=== PATIENT | male | born 1990 | race Caucasian/White ===

== ENCOUNTER 2020-02-29 20:25 | Emergency (ER) | payer BC ==
[2020-02-29 20:41] VITALS: RESP 20; TEMP 98
[2020-02-29] MEDS ORDERED: ACET/COD 300 MG/30 MG STARTER PACK 6 TAB BTL PO STA (21:11)
[2020-02-29] MEDS ORDERED: KETOROLAC 15 MG/ML 1 ML VIAL IM STA (21:11)
[2020-02-29] MEDS ORDERED: hydrALAZINE HCL 20 MG/ML 1 ML VIAL IVP STA (21:47)
[2020-02-29 22:14] LABS: Basophils # (A) 0.2 k/uL (0-0.2); Basophils % (A) 1 %; Eosinophils # (A) 0.3 k/uL (0-0.7); Eosinophils % (A) 3 %; HCT 52.4 % (39.0-53.0); HGB 17.3 gm/dL (13.0-17.5); Lymphocytes % (A) 33 %; MCH 33.7 pg (25.0-35.0); MCV 101.9 fL (80.0-100.0); Mean Platelet Volume 7.7; Monocytes # (A) 0.7 k/uL (0-1.0); Monocytes % (A) 5 %; Neutrophils # (A) 6.8 k/uL (1.3-7.7); Neutrophils % (A) 56 %; Platelet Count 267 k/uL (150-450); RBC 5.15 m/uL (4.30-5.90); RDW 12.4 % (11.5-15.5); WBC 12.1 k/uL (3.8-10.6)
[2020-02-29 22:23] LABS: INR 0.9 (<1.2); Partial Thromboplastin Time 23.5 sec (22.0-30.0); Prothrombin Time 9.6 sec (9.0-12.0)
[2020-02-29 22:24] LABS: ALT 73 U/L (4-49); AST 44 U/L (17-59); African American GFR (CKD) >90 (>60 ml/min/1.73 sqM); Alkaline Phosphatase 85 U/L (38-126); Anion Gap 7 mmol/L; Blood Urea Nitrogen 8 mg/dL (9-20); Calcium 9.3 mg/dL (8.4-10.2); Carbon Dioxide 27 mmol/L (22-30); Chloride 106 mmol/L (98-107); Glucose 94 mg/dL (74-99); Non-African American GFR(CKD) >90 (>60 ml/min/1.73 sqM); Potassium 4.1 mmol/L (3.5-5.1); Sodium 140 mmol/L (137-145); Total Bilirubin 0.5 mg/dL (0.2-1.3); Total Protein 7.3 g/dL (6.3-8.2)
[2020-02-29 22:53] VITALS: PULSE 93
--- NOTE | 2020-02-29 22:59 | ED ---
Back Pain HPI - General Chief Complaint: Back Pain/Injury Stated Complaint: back & leg pain Time Seen by Provider: 02/29/20 20:56 Source: patient Limitations: no limitations - History of Present Illness Initial Comments: 30-year-old male patient presents to the emergency department today for evaluation of low back pain. Patient states he has been having increased low back pain over the last week. States that the pain has been progressively worsening. States he is not having pain down the front of his legs to about the knee level. He is reporting numbness to the third toe on the left foot but denies any other numbness or tingling. Denies saddle anesthesia or loss of magdalena wel or bladder control. Denies fever or chills. Denies history of IV drug use. Denies any injury to the back. States he has history of herniated disc and has had back pain on and off but this is the worst its ever been. Patient states pain worsens with standing and ambulation. Was seen at urgent care this morning and given antiinflammatories, steroids, and muscle relaxers. States he did take the muscle relaxer and antiinflammatory, but it did not seem to help. Patient denies any recent rash, cough, shortness of breath, chest pain, abdominal pain, nausea, vomiting, diarrhea, constipation, dizziness, weakness, hematuria, dysuria, urinary urgency, urinary frequency, headache, visual changes, or any other complaints. - Related Data Home Medications Medication Instructions Recorded Confirmed Cyclobenzaprine [Flexeril] 10 mg PO HS PRN 02/29/20 02/29/20 Diclofenac Sodium [Voltaren] 50 mg PO BID PRN 02/29/20 02/29/20 dexAMETHasone [Dexamethasone] 2 mg PO DAILY 02/29/20 02/29/20 Previous Rx's Medication Instructions Recorded hydroCHLOROthiazide 25 mg PO DAILY #30 tablet 02/29/20 metroNIDAZOLE [Flagyl] 500 mg PO BID #14 tab 02/29/20 Allergies Allergy/AdvReac Type Severity Reaction Status Date / Time No Known Allergies Allergy Verified 02/29/20 22:22 Review of Systems ROS Statement: Those systems with pertinent positive or pertinent negative responses have been documented in the HPI. ROS Other: All systems not noted in ROS Statement are negative. Past Medical History Past Medical History: Hypertension History of Any Multi-Drug Resistant Organisms: None Reported Past Surgical History: No Surgical Hx Reported Past Psychological History: ADD/ADHD Smoking Status: Current every day smoker Past Alcohol Use History: Daily Past Drug Use History: Marijuana General Exam Limitations: no limitations General appearance: alert, in no apparent distress, other (This is a well- developed, well-nourished adult male patient in no acute distress. Vital signs upon presentation are temperature 98.0F, pulse 86, respirations 20, blood pressure 183/125, pulse ox 99% on room air.) Eye exam: Present: normal appearance, PERRL, EOMI. Absent: scleral icterus, conjunctival injection, periorbital swelling ENT exam: Present: normal exam, normal oropharynx, mucous membranes moist Respiratory exam: Present: normal lung sounds bilaterally. Absent: respiratory distress, wheezes, rales, rhonchi, stridor Cardiovascular Exam: Present: regular rate, normal rhythm, normal heart sounds. Absent: systolic murmur, diastolic murmur, rubs, gallop, clicks GI/Abdominal exam: Present: soft, normal bowel sounds. Absent: distended, tenderness, guarding, rebound, rigid Neurological exam: Present: alert, oriented X3, CN II-XII intact Psychiatric exam: Present: normal affect, normal mood Skin exam: Present: warm, dry, intact, normal color. Absent: rash Course Vital Signs 02/29/20 02/29/20 02/29/20 20:35 21:27 22:52 Temperature 98.0 F Pulse Rate 86 93 Respiratory 20 20 Rate Blood Pressure 183/125 180/139 171/111 O2 Sat by Pulse 99 99 Oximetry 02/29/20 23:42 Temperature Pulse Rate Respiratory Rate Blood Pressure 158/113 O2 Sat by Pulse Oximetry Medical Decision Making - Medical Decision Making 30-year-old male patient presents to the emergency department today for evaluation of increased low back pain. He did have some right thoracic paraspinal tenderness consistent with spasm. He is neurovascularly intact. He has no concerning symptoms for cauda equina. Upon arrival blood pressure was quite elevated. He does report a history of hypertension but has not take medications for 2 years. Labs were obtained and were unremarkable. EKG was normal sinus. Urinalysis did show 28 white blood cells. We did discuss infection versus sexually transmitted disease, he does admit that his was recently diagnosed with Trichomonas and he has not been treated. We will treat with Flagyl. We did start hydrochlorothiazide for blood pressure management. He does not currently have a primary care physician one was recommended to him is instructed to follow-up as soon as possible. He is instructed to monitor blood pressures at home. He was given steroids, anti-inflammatory, and muscle relaxer at urgent care this morning, he is urged to continue these medications for management of his back pain. He was recommended orthopedics if his symptoms do not improve. Return parameters discussed in detail. He verbalizes understanding and agrees with this plan. - Lab Data Result diagrams: 02/29/20 22:00 02/29/20 22:00 Lab Results 02/29/20 02/29/20 02/29/20 Range/Units 22:00 22:00 22:00 WBC 12.1 H (3.8-10.6) k/uL RBC 5.15 (4.30-5.90) m/uL Hgb 17.3 (13.0-17.5) gm/dL Hct 52.4 (39.0-53.0) % MCV 101.9 H (80.0-100.0) fL MCH 33.7 (25.0-35.0) pg MCHC 33.0 (31.0-37.0) g/dL RDW 12.4 (11.5-15.5) % Plt Count 267 (150-450) k/uL Neutrophils % 56 % Lymphocytes % 33 % Monocytes % 5 % Eosinophils % 3 % Basophils % 1 % Neutrophils # 6.8 (1.3-7.7) k/uL Lymphocytes # 4.0 (1.0-4.8) k/uL Monocytes # 0.7 (0-1.0) k/uL Eosinophils # 0.3 (0-0.7) k/uL Basophils # 0.2 (0-0.2) k/uL PT 9.6 (9.0-12.0) sec INR 0.9 (<1.2) APTT 23.5 (22.0-30.0) sec Sodium (137-145) mmol/L Potassium (3.5-5.1) mmol/L Chloride (98-107) mmol/L Carbon Dioxide (22-30) mmol/L Anion Gap mmol/L BUN (9-20) mg/dL Creatinine (0.66-1.25) mg/dL Est GFR (CKD-EPI)AfAm (>60 ml/min/1.73 sqM) Est GFR (CKD-EPI)NonAf (>60 ml/min/1.73 sqM) Glucose (74-99) mg/dL Calcium (8.4-10.2) mg/dL Total Bilirubin (0.2-1.3) mg/dL AST (17-59) U/L ALT (4-49) U/L Alkaline Phosphatase (38-126) U/L Troponin I (0.000-0.034) ng/mL Total Protein (6.3-8.2) g/dL Albumin (3.5-5.0) g/dL Urine Color Yellow Urine Appearance Clear (Clear) Urine pH 6.5 (5.0-8.0) Ur Specific [place] 1.025 (1.001-1.035) Urine Protein Trace H (Negative) Urine Glucose (UA) Negative (Negative) Urine Ketones Negative (Negative) Urine Blood Negative (Negative) Urine Nitrite Negative (Negative) Urine Bilirubin Negative (Negative) Urine Urobilinogen 3.0 (<2.0) mg/dL Ur Leukocyte Esterase Moderate H (Negative) Urine RBC 8 H (0-5) /hpf Urine WBC 28 H (0-5) /hpf Ur Squamous Epith Cells 1 (0-4) /hpf Hyaline Casts 4 H (0-2) /lpf Urine Mucus Many H (None) /hpf 02/29/20 02/29/20 Range/Units 22:00 22:00 WBC (3.8-10.6) k/uL RBC (4.30-5.90) m/uL Hgb (13.0-17.5) gm/dL Hct (39.0-53.0) % MCV (80.0-100.0) fL MCH (25.0-35.0) pg MCHC (31.0-37.0) g/dL RDW (11.5-15.5) % Plt Count (150-450) k/uL Neutrophils % % Lymphocytes % % Monocytes % % Eosinophils % % Basophils % % Neutrophils # (1.3-7.7) k/uL Lymphocytes # (1.0-4.8) k/uL Monocytes # (0-1.0) k/uL Eosinophils # (0-0.7) k/uL Basophils # (0-0.2) k/uL PT (9.0-12.0) sec INR (<1.2) APTT (22.0-30.0) sec Sodium 140 (137-145) mmol/L Potassium 4.1 (3.5-5.1) mmol/L Chloride 106 (98-107) mmol/L Carbon Dioxide 27 (22-30) mmol/L Anion Gap 7 mmol/L BUN 8 L (9-20) mg/dL Creatinine 0.95 (0.66-1.25) mg/dL Est GFR (CKD-EPI)AfAm >90 (>60 ml/min/1.73 sqM) Est GFR (CKD-EPI)NonAf >90 (>60 ml/min/1.73 sqM) Glucose 94 (74-99) mg/dL Calcium 9.3 (8.4-10.2) mg/dL Total Bilirubin 0.5 (0.2-1.3) mg/dL AST 44 (17-59) U/L ALT 73 H (4-49) U/L Alkaline Phosphatase 85 (38-126) U/L Troponin I <0.012 (0.000-0.034) ng/mL Total Protein 7.3 (6.3-8.2) g/dL Albumin 4.0 (3.5-5.0) g/dL Urine Color Urine Appearance (Clear) Urine pH (5.0-8.0) Ur Specific [place] (1.001-1.035) Urine Protein (Negative) Urine Glucose (UA) (Negative) Urine Ketones (Negative) Urine Blood (Negative) Urine Nitrite (Negative) Urine Bilirubin (Negative) Urine Urobilinogen (<2.0) mg/dL Ur Leukocyte Esterase (Negative) Urine RBC (0-5) /hpf Urine WBC (0-5) /hpf Ur Squamous Epith Cells (0-4) /hpf Hyaline Casts (0-2) /lpf Urine Mucus (None) /hpf - EKG Data -: EKG Interpreted by Me EKG Comments: EKG obtained at 2205 shows normal sinus rhythm with a ventricular 77, RI interval 178, QRS duration 86, QT 386, QTc 436. No evidence of ST elevation or depression. Disposition Clinical Impression: Hypertension, Acute low back pain Disposition: HOME SELF-CARE Condition: Good Instructions (If sedation given, give patient instructions): Acute Low Back Pain (ED), Hypertension (ED) Additional Instructions: Take medications as directed. Establish and follow up with primary care physician for recheck as soon as possible. Follow-up with aircraft engine specialist if her back pain does not improve with instructions and medication. Return to the emergency department immediately for any new, worsening, or concerning symptoms. Prescriptions: metroNIDAZOLE [Flagyl] 500 mg PO BID #14 tab hydroCHLOROthiazide 25 mg PO DAILY #30 tablet Is patient prescribed a controlled substance at d/c from ED?: No Referrals: Edouard Dobson DO [STAFF PHYSICIAN] - 1-2 days Kia Lockett DO [Doctor of Osteopathic Medicine] - 1-2 days Time of Disposition: 23:16
[2020-02-29 23:12] LABS: Appearance,Urine Clear (Clear); Bilirubin,Urine Negative (Negative); Blood,Urine Negative (Negative); Color,Urine Yellow; Glucose,Urine (UA) Negative (Negative); Hyaline Casts,Urine 4 /lpf (0-2); Ketones,Urine Negative (Negative); Leukocyte Esterase,Urine Moderate (Negative); Mucus,Urine Many /hpf; Nitrite,Urine Negative (Negative); PH, Urine 6.5 (5.0-8.0); Protein,Urine Trace (Negative); RBC,Urine 8 /hpf (0-5); Specific Gravity,Urine 1.025 (1.001-1.035); Squamous Epithelial Cell,Urine 1 /hpf (0-4); WBC,Urine 28 /hpf (0-5)
[2020-02-29] MEDS ORDERED: hydroCHLOROthiazide 25 MG TAB PO STA (23:14)
[2020-02-29] MEDS ORDERED: ONDANSETRON 4 MG/2 ML VIAL IVP STA (23:15)
[2020-02-29] MEDS ORDERED: HYDROmorphone 1 MG/ML 1 ML SYRINGE IVP STA (23:15)
[2020-02-29] MEDS ORDERED: metroNIDAZOLE 500 MG TAB PO STA (23:34)
[2020-02-29 23:48] VITALS: BP 158/113
== END 2020-02-29 23:50 | disposition home or self-care (01) ==
LOC: EC 20:25
DX: M54.5 Low back pain (principal); I10 Essential (primary) hypertension; F17.200 Nicotine dependence, unspecified, uncomplicated; Z79.899 Other long term (current) drug therapy
CPT/HCPCS: 36415; 93005; 80053; 84484; 85025; 85610; 85730; 81001; 87491; 87591; 87086; 99284; 96374; 96375 ×2; 96372; J0360; J2405; J1170; J1885

== ENCOUNTER 2021-09-16 04:07 | Emergency (ER) | payer BC ==
[2021-09-16 06:10] VITALS: TEMP 98
[2021-09-16 06:52] VITALS: RESP 18
[2021-09-16 07:26] LABS: Basophils # (A) 0.2 k/uL (0-0.2); Basophils % (A) 2 %; Eosinophils # (A) 0.2 k/uL (0-0.7); Eosinophils % (A) 1 %; HCT 50.4 % (39.0-53.0); HGB 17.3 gm/dL (13.0-17.5); Lymphocytes # (A) 3.3 k/uL (1.0-4.8); Lymphocytes % (A) 24 %; MCH 34.2 pg (25.0-35.0); MCHC 34.4 g/dL (31.0-37.0); MCV 99.6 fL (80.0-100.0); Mean Platelet Volume 8.7; Monocytes # (A) 0.7 k/uL (0-1.0); Monocytes % (A) 5 %; Neutrophils # (A) 9.1 k/uL (1.3-7.7); Neutrophils % (A) 67 %; Platelet Count 211 k/uL (150-450); RBC 5.06 m/uL (4.30-5.90); RDW 12.5 % (11.5-15.5); WBC 13.7 k/uL (3.8-10.6)
--- NOTE | 2021-09-16 07:33 | CT ---
EXAM: CT Angiography Chest With Intravenous Contrast CLINICAL HISTORY: chest and abd pain TECHNIQUE: Axial computed tomographic angiography images of the chest with intravenous contrast. CTDI is 32.2 mGy and DLP is 1356 mGy-cm. This CT exam was performed using one or more of the following dose reduction techniques: automated exposure control, adjustment of the mA and/or kV according to patient size, and/or use of iterative reconstruction technique. MIP reconstructed images were created and reviewed. COMPARISON: None FINDINGS: Pulmonary arteries: No central or large pulmonary embolus identified. Evaluation of the pulmonary arterial branches is limited by suboptimal contrast bolus timing. Aorta: No aortic aneurysm or dissection. Lungs: Unremarkable. No mass. No consolidation. Pleural space: Unremarkable. No significant effusion. No pneumothorax. Heart: Unremarkable. No cardiomegaly. No significant pericardial effusion. No evidence of RV dysfunction. Bones/joints: Degenerative changes of the spine. No acute fracture. No dislocation. Soft tissues: Unremarkable. Lymph nodes: Nonspecific shotty axillary lymph nodes. IMPRESSION: 1. No central or large pulmonary embolus identified. Evaluation of the pulmonary arterial branches is limited by suboptimal contrast bolus timing. 2. No aortic aneurysm or dissection. 3. No acute pulmonary parenchymal abnormality identified. EXAM: CT Abdomen and Pelvis With Intravenous Contrast CLINICAL HISTORY: chest and abd pain TECHNIQUE: Axial computed tomography images of the abdomen and pelvis with intravenous contrast. CTDI is 45.1 mGy and DLP is 2565 mGy-cm. This CT exam was performed using one or more of the following dose reduction techniques: automated exposure control, adjustment of the mA and/or kV according to patient size, and/or use of iterative reconstruction technique. COMPARISON: None FINDINGS: ABDOMEN: Liver: Hepatic steatosis. Hepatomegaly. Gallbladder and bile ducts: Unremarkable. No calcified stones. No ductal dilation. Pancreas: Unremarkable. No mass. No ductal dilation. Spleen: Splenule. Borderline size of the spleen. Adrenals: Unremarkable. No mass. Kidneys and ureters: No hydronephrosis or obstructing stone. Stomach and bowel: Evaluation of the stomach is limited by under distention. Diverticulosis without evidence of diverticulitis. Compressed descending colon and sigmoid colon limits evaluation. No small bowel obstruction. PELVIS: Appendix: Normal appendix. Bladder: Unremarkable. No mass. Reproductive: Unremarkable as visualized. ABDOMEN and PELVIS: Intraperitoneal space: Unremarkable. No free air. No significant fluid collection. 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 No acute fracture. No dislocation. Soft tissues: Small fat-containing bilateral inguinal hernias. Tiny fat-containing umbilical hernia. Vasculature: Unremarkable. No abdominal aortic aneurysm. Lymph nodes: Unremarkable. No enlarged lymph nodes. IMPRESSION: Hepatic steatosis. Hepatomegaly. No acute abnormality in the abdomen or pelvis.
[2021-09-16 07:34] LABS: Creatine Kinase 212 U/L (55-170)
[2021-09-16 07:40] LABS: ALT 101 U/L (4-49); African American GFR (CKD) >90 (>60 ml/min/1.73 sqM); Alcohol <10 mg/dL; Anion Gap 8 mmol/L; Blood Urea Nitrogen 8 mg/dL (9-20); Calcium 8.7 mg/dL (8.4-10.2); Carbon Dioxide 25 mmol/L (22-30); Chloride 102 mmol/L (98-107); Glucose 111 mg/dL (74-99); Lipase 101 U/L (23-300); Non-African American GFR(CKD) >90 (>60 ml/min/1.73 sqM); Sodium 135 mmol/L (137-145); Total Bilirubin 0.7 mg/dL (0.2-1.3)
[2021-09-16 07:46] LABS: Creatine Kinase MB 1.2 ng/mL (0.0-2.4); Troponin I <0.012 ng/mL (0.000-0.034)
[2021-09-16 07:50] LABS: AST 111 U/L (17-59); Albumin 3.8 g/dL (3.5-5.0); Alkaline Phosphatase 106 U/L (38-126); Magnesium 1.8 mg/dL (1.6-2.3); Phosphorus 3.8 mg/dL (2.5-4.5); Potassium 4.5 mmol/L (3.5-5.1); Total Protein 7.1 g/dL (6.3-8.2)
[2021-09-16 08:04] LABS: INR 0.9 (<1.2); Partial Thromboplastin Time 23.8 sec (22.0-30.0); Prothrombin Time 9.8 sec (9.0-12.0)
--- NOTE | 2021-09-16 08:24 | ED ---
Medical Decision Making - Medical Decision Making This patient was signed out to me by Dr. Walker. I went back in and reinterviewed the patient he stated that his chest pain typically occurred at night at rest and it was sharp in nature. Patient states his been ongoing for years. Patient states he is quite a bit of a drinker as well. CT of the chest abdomen pelvis were all negative. Patient will follow-up with his primary medical care doctor. - Lab Data Result diagrams: 09/16/21 06:53 09/16/21 06:53 Lab Results 09/16/21 09/16/21 09/16/21 Range/Units 06:53 06:53 06:53 WBC 13.7 H (3.8-10.6) k/uL RBC 5.06 (4.30-5.90) m/uL Hgb 17.3 (13.0-17.5) gm/dL Hct 50.4 (39.0-53.0) % MCV 99.6 (80.0-100.0) fL MCH 34.2 (25.0-35.0) pg MCHC 34.4 (31.0-37.0) g/dL RDW 12.5 (11.5-15.5) % Plt Count 211 (150-450) k/uL MPV 8.7 Neutrophils % 67 % Lymphocytes % 24 % Monocytes % 5 % Eosinophils % 1 % Basophils % 2 % Neutrophils # 9.1 H (1.3-7.7) k/uL Lymphocytes # 3.3 (1.0-4.8) k/uL Monocytes # 0.7 (0-1.0) k/uL Eosinophils # 0.2 (0-0.7) k/uL Basophils # 0.2 (0-0.2) k/uL PT (9.0-12.0) sec INR (<1.2) APTT (22.0-30.0) sec D-Dimer (<0.60) mg/L FEU Sodium 135 L (137-145) mmol/L Potassium 4.5 (3.5-5.1) mmol/L Chloride 102 (98-107) mmol/L Carbon Dioxide 25 (22-30) mmol/L Anion Gap 8 mmol/L BUN 8 L (9-20) mg/dL Creatinine 0.88 (0.66-1.25) mg/dL Est GFR (CKD-EPI)AfAm >90 (>60 ml/min/1.73 sqM) Est GFR (CKD-EPI)NonAf >90 (>60 ml/min/1.73 sqM) Glucose 111 H (74-99) mg/dL Calcium 8.7 (8.4-10.2) mg/dL Phosphorus 3.8 (2.5-4.5) mg/dL Magnesium 1.8 (1.6-2.3) mg/dL Total Bilirubin 0.7 (0.2-1.3) mg/dL AST 111 H (17-59) U/L ALT 101 H (4-49) U/L Alkaline Phosphatase 106 (38-126) U/L Total Creatine Kinase 212 H (55-170) U/L CK-MB (CK-2) 1.2 (0.0-2.4) ng/mL CK-MB (CK-2) Rel Index 0.6 Troponin I <0.012 (0.000-0.034) ng/mL Total Protein 7.1 (6.3-8.2) g/dL Albumin 3.8 (3.5-5.0) g/dL Lipase 101 (23-300) U/L Serum Alcohol <10 mg/dL 09/16/21 Range/Units 06:53 WBC (3.8-10.6) k/uL RBC (4.30-5.90) m/uL Hgb (13.0-17.5) gm/dL Hct (39.0-53.0) % MCV (80.0-100.0) fL MCH (25.0-35.0) pg MCHC (31.0-37.0) g/dL RDW (11.5-15.5) % Plt Count (150-450) k/uL MPV Neutrophils % % Lymphocytes % % Monocytes % % Eosinophils % % Basophils % % Neutrophils # (1.3-7.7) k/uL Lymphocytes # (1.0-4.8) k/uL Monocytes # (0-1.0) k/uL Eosinophils # (0-0.7) k/uL Basophils # (0-0.2) k/uL PT 9.8 (9.0-12.0) sec INR 0.9 (<1.2) APTT 23.8 (22.0-30.0) sec D-Dimer 0.28 (<0.60) mg/L FEU Sodium (137-145) mmol/L Potassium (3.5-5.1) mmol/L Chloride (98-107) mmol/L Carbon Dioxide (22-30) mmol/L Anion Gap mmol/L BUN (9-20) mg/dL Creatinine (0.66-1.25) mg/dL Est GFR (CKD-EPI)AfAm (>60 ml/min/1.73 sqM) Est GFR (CKD-EPI)NonAf (>60 ml/min/1.73 sqM) Glucose (74-99) mg/dL Calcium (8.4-10.2) mg/dL Phosphorus (2.5-4.5) mg/dL Magnesium (1.6-2.3) mg/dL Total Bilirubin (0.2-1.3) mg/dL AST (17-59) U/L ALT (4-49) U/L Alkaline Phosphatase (38-126) U/L Total Creatine Kinase (55-170) U/L CK-MB (CK-2) (0.0-2.4) ng/mL CK-MB (CK-2) Rel Index Troponin I (0.000-0.034) ng/mL Total Protein (6.3-8.2) g/dL Albumin (3.5-5.0) g/dL Lipase (23-300) U/L Serum Alcohol mg/dL Disposition Clinical Impression: Atypical chest pain Disposition: HOME SELF-CARE Instructions (If sedation given, give patient instructions): Chest Pain (ED) Is patient prescribed a controlled substance at d/c from ED?: No Referrals: Nonstaff,Physician [Primary Care Provider] - 1-2 days Time of Disposition: 08:24
[2021-09-16 08:53] VITALS: BP 150/98; PULSE 88
[2021-09-16 11:09] LABS: Hepatitis A Antibody IgM Nonreactive (Nonreactive); Hepatitis B Core IgM Nonreactive (Nonreactive); Hepatitis B Surface Antigen Nonreactive (Nonreactive); Hepatitis C IgG Antibody Nonreactive (Nonreactive)
== END 2021-09-16 08:52 | disposition home or self-care (01) ==
LOC: EC 04:07
DX: R07.89 Other chest pain (principal)
CPT/HCPCS: 36415; 85379; 80053; 80074; 82140; 82550; 82553; 83690; 83735; 84100; 84484; 85025; 85610; 85730; 80320; 71275; 74177; 99285; Q9967

== ENCOUNTER 2022-03-31 16:20 | Inpatient (IN) | payer BC ==
[2022-03-31] MEDS ORDERED: ACETAMINOPHEN TAB 325 MG TAB PO STA (18:51)
[2022-03-31] MEDS ORDERED: IBUPROFEN 600 MG TAB PO STA (18:51)
[2022-03-31] MEDS ORDERED: SODIUM CHLORIDE 0.9% 2,000 ML IV ONE (18:53)
[2022-03-31] MEDS ORDERED: PIPERACILLIN-TAZOBACTAM 3.375 GM in SODIUM CHLORIDE 0.9% 100 ML IVPB STA (18:54)
--- NOTE | 2022-03-31 19:29 | ED ---
General Adult HPI - General Chief complaint: Skin/Abscess/Foreign Body Stated complaint: Wound Infection Time Seen by Provider: 03/31/22 18:43 Source: patient Mode of arrival: ambulatory Limitations: no limitations - History of Present Illness Initial comments: Patient is a 32-year-old male presenting with chief complaint of abscess to the right groin. Patient states he first noticed a painless lump on , by Thursday on became painful and by Thursday evening the abscess began draining. Patient states that the abscess is still actively draining. He admits to fever and chills. Admits to nausea, no vomiting or abdominal pain. Admits to scrotal swelling, denies scrotal pain. Admits to intermittent mild headache. Denies neck pain or stiffness. No chest pain or difficulty breathing. No dysuria, hematuria, flank pain. - Related Data Home Medications Medication Instructions Recorded Confirmed Ergocalciferol [Vitamin D2 (1250 1,250 mcg PO MOFR@0900 09/16/21 09/16/21 Mcg = 74857 Iu)] Folic Acid 1 mg PO DAILY 09/16/21 09/16/21 Previous Rx's Medication Instructions Recorded hydroCHLOROthiazide 25 mg PO DAILY #30 tablet 02/29/20 Allergies Allergy/AdvReac Type Severity Reaction Status Date / Time lisinopril AdvReac Cough Verified 09/16/21 07:51 Review of Systems ROS Statement: Those systems with pertinent positive or pertinent negative responses have been documented in the HPI. ROS Other: All systems not noted in ROS Statement are negative. Past Medical History Past Medical History: Hypertension History of Any Multi-Drug Resistant Organisms: None Reported Past Surgical History: No Surgical Hx Reported Past Psychological History: ADD/ADHD Smoking Status: Current every day smoker Past Alcohol Use History: Daily Past Drug Use History: Marijuana General Exam Limitations: no limitations General appearance: alert, in no apparent distress Head exam: Present: atraumatic, normocephalic, normal inspection Eye exam: Present: normal appearance Neck exam: Present: normal inspection, full ROM Respiratory exam: Present: normal lung sounds bilaterally. Absent: respiratory distress, wheezes, rales, rhonchi, stridor Cardiovascular Exam: Present: regular rate, normal rhythm, normal heart sounds. Absent: systolic murmur, diastolic murmur, rubs, gallop, clicks exam: Present: scrotal swelling. Absent: testicular tenderness Neurological exam: Present: alert, oriented X3, CN II-XII intact Psychiatric exam: Present: normal affect, normal mood Expanded Type of lesion: Present: abscess (abscess, not currently draining, located in right groin) Course Vital Signs 03/31/22 03/31/22 04/01/22 16:42 20:15 00:03 Temperature 99.6 F 99.0 F Pulse Rate 120 H 95 85 Respiratory 20 16 16 Rate Blood Pressure 179/104 152/94 151/100 O2 Sat by Pulse 98 98 Oximetry Medical Decision Making - Medical Decision Making Patient is a 32-year-old male presenting with chief complaint of abscess to the right groin. Has been present for the last 3 days, has been draining. On examination there is tenderness and induration, small amount of drainage is seen. Wound culture is sent. Patient is mildly febrile and tachycardic, he is given Motrin and Tylenol and started on fluids. Blood cultures are ordered and Zosyn is started. CBC shows WBC 16.7. Urine shows trace leukocytes, will be sent for culture. Ultrasound of the scrotum shows skin thickening without evidence for organizing fluid collection and appropriate arterial and venous waveforms. CT is suggestive of cellulitis, no drainable fluid collection is seen. Patient will be admitted for IV antibiotics. I spoke with Dr. Castañeda accepted admission. Patient is agreeable with this plan. I discussed this case with my attending Dr. Gunn - Lab Data Result diagrams: 03/31/22 19:20 03/31/22 19:20 Lab Results 03/31/22 03/31/22 03/31/22 Range/Units 19:20 19:20 19:20 WBC 16.7 H (3.8-10.6) k/uL RBC 4.42 (4.30-5.90) m/uL Hgb 15.9 (13.0-17.5) gm/dL Hct 45.0 (39.0-53.0) % MCV 101.7 H (80.0-100.0) fL MCH 36.0 H (25.0-35.0) pg MCHC 35.4 (31.0-37.0) g/dL RDW 13.3 (11.5-15.5) % Plt Count 224 (150-450) k/uL MPV 8.7 Neutrophils % 77 % Lymphocytes % 14 % Monocytes % 6 % Eosinophils % 1 % Basophils % 1 % Neutrophils # 12.8 H (1.3-7.7) k/uL Lymphocytes # 2.3 (1.0-4.8) k/uL Monocytes # 1.0 (0-1.0) k/uL Eosinophils # 0.2 (0-0.7) k/uL Basophils # 0.1 (0-0.2) k/uL Macrocytosis Slight Sodium 135 L (137-145) mmol/L Potassium 4.0 (3.5-5.1) mmol/L Chloride 104 (98-107) mmol/L Carbon Dioxide 26 (22-30) mmol/L Anion Gap 5 mmol/L BUN 9 (9-20) mg/dL Creatinine 0.80 (0.66-1.25) mg/dL Est GFR (CKD-EPI)AfAm >90 (>60 ml/min/1.73 sqM) Est GFR (CKD-EPI)NonAf >90 (>60 ml/min/1.73 sqM) Glucose 100 H (74-99) mg/dL Plasma Lactic Acid [place] 1.2 (0.7-2.0) mmol/L Calcium 8.4 (8.4-10.2) mg/dL Total Bilirubin 1.0 (0.2-1.3) mg/dL AST 31 (17-59) U/L ALT 54 H (4-49) U/L Alkaline Phosphatase 95 (38-126) U/L Total Protein 6.7 (6.3-8.2) g/dL Albumin 3.3 L (3.5-5.0) g/dL Urine Color Urine Appearance (Clear) Urine pH (5.0-8.0) Ur Specific [place] (1.001-1.035) Urine Protein (Negative) Urine Glucose (UA) (Negative) Urine Ketones (Negative) Urine Blood (Negative) Urine Nitrite (Negative) Urine Bilirubin (Negative) Urine Urobilinogen (<2.0) mg/dL Ur Leukocyte Esterase (Negative) Urine RBC (0-5) /hpf Urine WBC (0-5) /hpf Urine Mucus (None) /hpf 03/31/22 Range/Units 22:08 WBC (3.8-10.6) k/uL RBC (4.30-5.90) m/uL Hgb (13.0-17.5) gm/dL Hct (39.0-53.0) % MCV (80.0-100.0) fL MCH (25.0-35.0) pg MCHC (31.0-37.0) g/dL RDW (11.5-15.5) % Plt Count (150-450) k/uL MPV Neutrophils % % Lymphocytes % % Monocytes % % Eosinophils % % Basophils % % Neutrophils # (1.3-7.7) k/uL Lymphocytes # (1.0-4.8) k/uL Monocytes # (0-1.0) k/uL Eosinophils # (0-0.7) k/uL Basophils # (0-0.2) k/uL Macrocytosis Sodium (137-145) mmol/L Potassium (3.5-5.1) mmol/L Chloride (98-107) mmol/L Carbon Dioxide (22-30) mmol/L Anion Gap mmol/L BUN (9-20) mg/dL Creatinine (0.66-1.25) mg/dL Est GFR (CKD-EPI)AfAm (>60 ml/min/1.73 sqM) Est GFR (CKD-EPI)NonAf (>60 ml/min/1.73 sqM) Glucose (74-99) mg/dL Plasma Lactic Acid Leonel (0.7-2.0) mmol/L Calcium (8.4-10.2) mg/dL Total Bilirubin (0.2-1.3) mg/dL AST (17-59) U/L ALT (4-49) U/L Alkaline Phosphatase (38-126) U/L Total Protein (6.3-8.2) g/dL Albumin (3.5-5.0) g/dL Urine Color Yellow Urine Appearance Clear (Clear) Urine pH 5.5 (5.0-8.0) Ur Specific [place] 1.017 (1.001-1.035) Urine Protein Trace H (Negative) Urine Glucose (UA) Negative (Negative) Urine Ketones Negative (Negative) Urine Blood Negative (Negative) Urine Nitrite Negative (Negative) Urine Bilirubin Negative (Negative) Urine Urobilinogen 2.0 (<2.0) mg/dL Ur Leukocyte Esterase Trace H (Negative) Urine RBC 1 (0-5) /hpf Urine WBC 4 (0-5) /hpf Urine Mucus Occasional H (None) /hpf Disposition Clinical Impression: Abscess or cellulitis of groin Disposition: ADMITTED IP TO THIS HOSP Condition: Fair Referrals: None,Stated [Primary Care Provider] - 1-2 days Time of Disposition: 23:04 Decision to Admit Reason: Admit from EC Decision Date: 03/31/22 Decision Time: 23:04
[2022-03-31 19:50] LABS: Basophils # (A) 0.1 k/uL (0-0.2); Basophils % (A) 1 %; Eosinophils # (A) 0.2 k/uL (0-0.7); Eosinophils % (A) 1 %; HGB 15.9 gm/dL (13.0-17.5); Lymphocytes # (A) 2.3 k/uL (1.0-4.8); Lymphocytes % (A) 14 %; MCHC 35.4 g/dL (31.0-37.0); MCV 101.7 fL (80.0-100.0); Macrocytosis Slight; Mean Platelet Volume 8.7; Monocytes % (A) 6 %; Neutrophils # (A) 12.8 k/uL (1.3-7.7); Neutrophils % (A) 77 %; Platelet Count 224 k/uL (150-450); RBC 4.42 m/uL (4.30-5.90); RDW 13.3 % (11.5-15.5); WBC 16.7 k/uL (3.8-10.6)
[2022-03-31 20:10] LABS: ALT 54 U/L (4-49); AST 31 U/L (17-59); African American GFR (CKD) >90 (>60 ml/min/1.73 sqM); Albumin 3.3 g/dL (3.5-5.0); Alkaline Phosphatase 95 U/L (38-126); Anion Gap 5 mmol/L; Blood Urea Nitrogen 9 mg/dL (9-20); Calcium 8.4 mg/dL (8.4-10.2); Carbon Dioxide 26 mmol/L (22-30); Chloride 104 mmol/L (98-107); Glucose 100 mg/dL (74-99); Non-African American GFR(CKD) >90 (>60 ml/min/1.73 sqM); Sodium 135 mmol/L (137-145); Total Protein 6.7 g/dL (6.3-8.2)
--- NOTE | 2022-03-31 20:11 | US ---
EXAMINATION TYPE: US scrotum with doppler. Grayscale and color Doppler Duplex imaging performed of t dixie scrotum. DATE OF EXAM: 03/31/2022 COMPARISON: NONE CLINICAL HISTORY: scrotal swelling, groin abscess. Scrotal swelling and groin abscess x 4 days EXAM MEASUREMENTS: TESTICLES: Right Testicle: 4.5 x 3.4 x 2.1 cm Left Testicle: 4.6 x 3.2 x 2.3 cm EPIDIDYMIS HEAD: Right Epididymis: 1.6 x 0.9 cm Left Epididymis: 1.1 x 0.8 cm Doppler performed to assess for testicular vascularity; good bilateral color flow and waveforms are s een. There is no evidence of testicular torsion. Presence of hydroceles: No Presence of varicoceles: No Echogenic foci seen sup and lateral to the right testicle measuring 0.5 x 0.5 x 0.3cm. Skin thickenin g seen in scrotum. No evidence of organizing fluid collection. IMPRESSION: 1. Skin thickening without evidence for organizing fluid collection. 2. [place] albuginea calcification the right. 3. Appropriate arterial and venous waveforms to the testes.
[2022-03-31] MEDS: SODIUM CHLORIDE 0.9% 1,000 ML IV SCH (20:14)
[2022-03-31 22:21] LABS: Appearance,Urine Clear (Clear); Bilirubin,Urine Negative (Negative); Blood,Urine Negative (Negative); Color,Urine Yellow; Glucose,Urine (UA) Negative (Negative); Ketones,Urine Negative (Negative); Leukocyte Esterase,Urine Trace (Negative); Mucus,Urine Occasional /hpf; Nitrite,Urine Negative (Negative); PH, Urine 5.5 (5.0-8.0); Protein,Urine Trace (Negative); RBC,Urine 1 /hpf (0-5); Specific Gravity,Urine 1.017 (1.001-1.035); WBC,Urine 4 /hpf (0-5)
--- NOTE | 2022-03-31 22:42 | CT ---
EXAMINATION TYPE: CT abdomen pelvis w con DATE OF EXAM: 03/31/2022 COMPARISON: 09/16/2021 HISTORY: Right side groin abscess. Draining x96hrs. CT DLP: 5882.4 mGycm Automated exposure control for dose reduction was used. CONTRAST: Performed with IV Contrast, patient injected with 100cc mL of Isovue 370. Images of the abdomen and pelvis obtained from the diaphragm to the floor of the pelvis with IV contr ast. The lung bases are clear. No pleural effusion. Heart size is normal. No pericardial effusion. There is some fatty infiltration of the liver. Gallbladder appears normal. Spleen is intact. The stom ach is intact. No pancreatic mass. There is no adrenal mass. Kidneys show satisfactory contrast opacification. No hydronephrosis. Ureter s are not dilated. No retroperitoneal adenopathy. Appendix is posterior and appears normal. The bladd er distends smoothly. No inguinal hernia. There is fat stranding in the subcutaneous tissues of the m edial right upper thigh and the right side of the perineum. The area measures 14 x 3 cm. No free fluid in the pelvis. No pelvic mass. There is no mesenteric edema. No ascites or free air. No sign of a bowel obstruction The lumbar vertebrae have normal alignment. No compression fracture. Disc spaces are fairly normal. B precious pelvis is intact. There is no evidence of hip fracture. There is sacral cyst extending from S1 to S4. IMPRESSION: Inflammatory changes in the subcutaneous fat in the right side of the perineum and consistent with ce llulitis. No drainable fluid collection. Normal appendix. Fatty infiltration of the liver.
[2022-03-31] MEDS ORDERED: NALOXONE 0.4 MG/ML 1 ML VIAL IV PRN (23:02)
[2022-03-31] MEDS: KETOROLAC 15 MG/ML 1 ML VIAL IVP PRN (23:59)
--- NOTE | 2022-04-01 03:10 | P.HPIM ---
History of Present Illness H&P Date: 04/01/22 The patient is a 32-year-old male with a PMH of poorly controlled hypertension who presents to the emergency room with concerns of a right groin abscess. The patient reports that he initially noticed a mild right groin swelling this past Thursday and attributed it to possibly a swollen lymph node. He subsequently noted that the swelling worsened and eventually burst the following day with purulent drainage. The patient then developed a fever with worsening pain, at which point he decided to come to the emergency room. He reports that his pain has improved and is currently at 2 out of 10. He denied experiencing chest discomfort, shortness of breath, nausea, vomiting. Laboratory evaluation was remarkable for leukocytosis of 16.7. CT abdomen and pelvis revealed inflammatory changes in the subcutaneous fat in the right side of the perineum consistent with cellulitis with no drainable fluid collection. There was also fatty infiltration of the liver. Scrotal ultrasound revealed no acute abnormalities. Review of systems: Pertinent positives and negatives as discussed in HPI, a complete review of systems was performed and all other systems are negative. Physical examination: General: non toxic, no distress, appears at stated age, morbidly obese Derm: Right perineal ulcer noted with surrounding erythema, warm Head: atraumatic, normocephalic, symmetric Eyes: EOMI, no lid lag, anicteric sclera, pupils equal round reactive to light ENT: Nose and ears atraumatic Neck: No cervical lymphadenopathy, trachea midline, supple Mouth: no lip lesion, mucus membranes moist Cardiovascular: S1S2 reg, no murmur, positive dorsalis pedis pulse bilateral, no edema Lungs: CTA bilateral, no rhonchi, no rales, no accessory muscle use Abdominal: soft, nontender to palpation, no guarding Ext: muscle strength 5 out of 5 in all 4 extremities grossly, no gross muscle atrophy, no contractures, Neuro: CN II-XI grossly intact, no gross focal neuro deficits Psych: Alert, oriented, appropriate affect Assessment/plan Right perineal abscess -Continue with IV antibiotics -Infectious disease consult -IV fluids -Pain control -Follow up blood cultures Hypertension -Patient is not currently taking any medications -Start Norvasc 10 mg daily DVT prophylaxis -Heparin subcu The patient is admitted with an anticipated less than 2 midnight stay for evaluation of R perioneal abscess CODE STATUS: Full Code Discussed with: Patient Anticipated discharge date: in am Anticipated discharge place: Home Past Medical History Past Medical History: Hypertension History of Any Multi-Drug Resistant Organisms: None Reported Past Surgical History: No Surgical Hx Reported Past Psychological History: ADD/ADHD Smoking Status: Current every day smoker Past Alcohol Use History: Daily Past Drug Use History: Marijuana - Past Family History Mother Family Medical History: Hypertension Medications and Allergies Home Medications Medication Instructions Recorded Confirmed Type hydroCHLOROthiazide 25 mg PO DAILY #30 tablet 02/29/20 09/16/21 Rx Ergocalciferol [Vitamin D2 (1250 1,250 mcg PO MOFR@0900 09/16/21 09/16/21 History Mcg = 09487 Iu)] Folic Acid 1 mg PO DAILY 09/16/21 09/16/21 History Allergies Allergy/AdvReac Type Severity Reaction Status Date / Time lisinopril AdvReac Cough Verified 09/16/21 07:51 Physical Exam Vitals: Vital Signs Temp Pulse Resp BP Pulse Ox 04/01/22 02:59 98.6 F 85 16 156/100 98 04/01/22 00:03 99.0 F 85 16 151/100 03/31/22 20:15 95 16 152/94 98 03/31/22 16:42 99.6 F 120 H 20 179/104 98 Intake and Output 03/31/22 03/31/22 04/01/22 14:59 22:59 06:59 Other: Weight 172.365 kg Results CBC & Chem 7: 03/31/22 19:20 03/31/22 19:20 Labs: Abnormal Lab Results - Last 24 Hours (Table) 03/31/22 03/31/22 03/31/22 Range/Units 19:20 19:20 22:08 WBC 16.7 H (3.8-10.6) k/uL MCV 101.7 H (80.0-100.0) fL MCH 36.0 H (25.0-35.0) pg Neutrophils # 12.8 H (1.3-7.7) k/uL Sodium 135 L (137-145) mmol/L Glucose 100 H (74-99) mg/dL ALT 54 H (4-49) U/L Albumin 3.3 L (3.5-5.0) g/dL Urine Protein Trace H (Negative) Ur Leukocyte Esterase Trace H (Negative) Urine Mucus Occasional H (None) /hpf
[2022-04-01] MEDS: PIPERACILLIN-TAZOBACTAM 3.375 GM in SODIUM CHLORIDE 0.9% 100 ML IVPB SCH ×3 (03:48→20:04)
[2022-04-01] MEDS: SODIUM CHLORIDE 0.9% 1,000 ML IV SCH ×3 (03:54→17:56)
[2022-04-01] MEDS: KETOROLAC 15 MG/ML 1 ML VIAL IVP PRN ×3 (06:01→20:13)
[2022-04-01] MEDS ORDERED: VANCOMYCIN IV PER PHARMACY 1 EACH MISC MISCELLANE PRN (07:39)
[2022-04-01] MEDS ORDERED: VANCOMYCIN 2,250 MG in SODIUM CHLORIDE 0.9% 500 ML 500 ML IVPB ONE (08:00)
[2022-04-01] MEDS: amLODIPine 10 MG TAB PO SCH (08:54)
[2022-04-01] MEDS: HEPARIN SODIUM,PORCINE/PF 5,000 UNIT/0.5 ML SYRINGE SQ SCH ×3 (08:55→23:08)
--- NOTE | 2022-04-01 10:47 | P.PN ---
Subjective Progress Note Date: 04/01/22 The patient is a 32-year-old male with poorly controlled hypertension who presented to the emergency room with concerns of a right groin abscess. In the ER he underwent extensive evaluation. On arrival his vital signs were remarkable for a pulse of 120 and a blood pressure 179/104. Laboratory evaluation was remarkable for leukocytosis of 16.7. CT abdomen and pelvis revealed inflammatory changes in the subcutaneous fat in the right side of the perineum consistent with cellulitis with no drainable fluid collection. There was also fatty infiltration of the liver. Scrotal ultrasound revealed no acute abnormalities. In the ER arrangements were made for admission secondary to right perennial abscess with sepsis. Patient was placed on Zosyn and infectious disease was consulted. Patient seen and examined at bedside. He complains of pain in his groin and back pain. Deneis any hx of skin infection requiring ABX, no nausea. Started on morning, ruptured on morning with mix of purulent drainage and blood and has been draining since. He reports that it is now thin drainage, reports increased scrotal sie since admission and states that it has increased to 3 times the size it was this morning. General: ill appearing, no distress, appears at stated age Derm: warm, dry Head: atraumatic, normocephalic, symmetric Eyes: EOMI, no lid lag, anicteric sclera Mouth: no lip lesion, mucus membranes moist Cardiovascular: S1S2 reg, no murmur, positive posterior tibial pulse bilateral, Lungs: CTA bilateral, no rhonchi, no rales , no accessory muscle use Abdominal: soft, nontender to palpation, no guarding, no appreciable organomegaly : approx 0.25 cm oprning in the perinum with thin, brown tinged drainage, sourround purple tinge, no crepitus, small opening medical right thigh without drainage noted. Ext: no gross muscle atrophy, no edema, no contractures Neuro: CN II-XI grossly intact, no focal neuro deficits Psych: Alert, oriented, appropriate affect Assessment/plan: Right perineal abscess with sepsis POA -Continue with zosyn, received 1 dose of vanco -Infectious disease consult pending -Consult urology -IV fluids -toradol, add norco -Follow up blood cultures Hypertension -Patient was not currently on any medications -first dos of norvasc this AM, monitor BP Morbid obesity with BMI 50.1 - structured outpatient weight loss DVT prophylaxis -Heparin subcu Anticipated discharge date: in am Anticipated discharge place: Home Objective - Vital Signs Vital signs: Vital Signs Temp 98.6 F 04/01/22 02:59 Pulse 85 04/01/22 02:59 Resp 16 04/01/22 02:59 BP 156/100 04/01/22 02:59 Pulse Ox 98 04/01/22 02:59 FiO2 Intake & Output 03/31/22 04/01/22 04/01/22 18:59 06:59 18:59 Weight 172.365 kg - Labs CBC & Chem 7: 03/31/22 19:20 03/31/22 19:20 Labs: Abnormal Lab Results - Last 24 Hours (Table) 03/31/22 03/31/22 03/31/22 Range/Units 19:20 19:20 22:08 WBC 16.7 H (3.8-10.6) k/uL MCV 101.7 H (80.0-100.0) fL MCH 36.0 H (25.0-35.0) pg Neutrophils # 12.8 H (1.3-7.7) k/uL Sodium 135 L (137-145) mmol/L Glucose 100 H (74-99) mg/dL ALT 54 H (4-49) U/L Albumin 3.3 L (3.5-5.0) g/dL Urine Protein Trace H (Negative) Ur Leukocyte Esterase Trace H (Negative) Urine Mucus Occasional H (None) /hpf Microbiology - Last 24 Hours (Table) 03/31/22 19:10 Wound Culture - Preliminary Groin
[2022-04-01] MEDS: HYDROcodone/APAP 5-325MG 1 EACH TAB PO PRN ×2 (11:15→20:03)
[2022-04-01 11:18] LABS: ALT 40 U/L (4-49); AST 31 U/L (17-59); African American GFR (CKD) >90 (>60 ml/min/1.73 sqM); Albumin 2.8 g/dL (3.5-5.0); Albumin/Globulin Ratio 0.9; Alkaline Phosphatase 87 U/L (38-126); Anion Gap 4 mmol/L; Blood Urea Nitrogen 10 mg/dL (9-20); Calcium 7.7 mg/dL (8.4-10.2); Carbon Dioxide 26 mmol/L (22-30); Chloride 105 mmol/L (98-107); Glucose 166 mg/dL (74-99); Non-African American GFR(CKD) >90 (>60 ml/min/1.73 sqM); Potassium 3.7 mmol/L (3.5-5.1); Sodium 135 mmol/L (137-145); Total Bilirubin 0.8 mg/dL (0.2-1.3); Total Protein 5.8 g/dL (6.3-8.2)
--- NOTE | 2022-04-01 15:16 | P.GSCN ---
History of Present Illness Consult date: 04/01/22 Reason for Consult: Perineal abscess Requesting physician: Jerica Landry History of present illness: The patient is a 32-year-old male presented to the emergency department on 03/31/22 with complaints of an abscess to the right groin. Patient states he first noticed a painless lump on . On Thursday it became painful and then began draining. He admits to having fever, chills, and nausea. No vomiting or abdominal pain. Reported some scrotal swelling, but denies scrotal pain. Ultrasound of the scrotum shows skin thickening without evidence for organizing fluid collection and appropriate arterial and venous waveforms. CT is suggestive of cellulitis, no drainable fluid collection is seen. A wound culture was sent. ID is following, Review of Systems - Constitutional Reports chills, Reports fever - EENT Ears, nose, mouth and throat: Reports headache - Cardiovascular Denies chest pain, Denies shortness of breath - Gastrointestinal Reports nausea, Denies abdominal pain, Denies vomiting - Genitourinary Denies flank pain, Denies hematuria Past Medical History Past Medical History: Hypertension History of Any Multi-Drug Resistant Organisms: None Reported Past Surgical History: No Surgical Hx Reported Additional Past Surgical History / Comment(s): Left foot surgery during childhood Past Psychological History: ADD/ADHD Smoking Status: Current every day smoker Past Alcohol Use History: Daily Past Drug Use History: Marijuana - Past Family History Mother Family Medical History: Hypertension Medications and Allergies Home Medications Medication Instructions Recorded Confirmed Type Ergocalciferol [Vitamin D2 (1250 1,250 mcg PO DIRECTED 09/16/21 04/01/22 History Mcg = 77289 Iu)] Folic Acid 1 mg PO DIRECTED 09/16/21 04/01/22 History Amitriptyline HCl [Elavil] 25 mg PO DIRECTED 04/01/22 04/01/22 History Famotidine [Pepcid] 20 mg PO DIRECTED 04/01/22 04/01/22 History Losartan Potassium [Cozaar] 25 mg PO DIRECTED 04/01/22 04/01/22 History Metoprolol Tartrate [Lopressor] 50 mg PO DIRECTED 04/01/22 04/01/22 History hydroCHLOROthiazide 25 mg PO DIRECTED 04/01/22 04/01/22 History Allergies Allergy/AdvReac Type Severity Reaction Status Date / Time nickel Allergy Unknown Verified 04/01/22 07:59 lisinopril AdvReac Cough Verified 04/01/22 07:59 Surgical - Exam Vital Signs Temp Pulse Resp BP Pulse Ox 99.6 F 120 H 20 179/104 98 03/31/22 16:42 03/31/22 16:42 03/31/22 16:42 03/31/22 16:42 03/31/22 16:42 General: Well developed, well nourished. No acute distress. HEENT: Head is atraumatic, normocephalic. Lungs: Clear to auscultation bilaterally. No wheezes rales or rhonchi. Respirations even and nonlabored. Abdomen/GI: Soft, obese, abdomen non-distended, non-tender : No suprapubic tenderness. Scrotum soft and reddened. Approx 0.50 cm opening in the right perinum with thin, brown tinged drainage. Red, warm, firm area noted to right groin and right inner thigh. Probable fluid collection noted to extend posteriorly from the right perineum down to the right buttock. Skin: Warm and dry Neurologic: Awake, alert and oriented times 3. CN II-XII grossly intact. No focal deficits. Psychiatric: Appropriate mood and affect. Results - Labs 03/31/22 19:20 04/01/22 10:50 Abnormal Lab Results - Last 24 Hours (Table) 03/31/22 03/31/22 03/31/22 Range/Units 19:20 19:20 22:08 WBC 16.7 H (3.8-10.6) k/uL MCV 101.7 H (80.0-100.0) fL MCH 36.0 H (25.0-35.0) pg Neutrophils # 12.8 H (1.3-7.7) k/uL Sodium 135 L (137-145) mmol/L Glucose 100 H (74-99) mg/dL Calcium (8.4-10.2) mg/dL ALT 54 H (4-49) U/L Total Protein (6.3-8.2) g/dL Albumin 3.3 L (3.5-5.0) g/dL Urine Protein Trace H (Negative) Ur Leukocyte Esterase Trace H (Negative) Urine Mucus Occasional H (None) /hpf 04/01/22 Range/Units 10:50 WBC (3.8-10.6) k/uL MCV (80.0-100.0) fL MCH (25.0-35.0) pg Neutrophils # (1.3-7.7) k/uL Sodium 135 L (137-145) mmol/L Glucose 166 H (74-99) mg/dL Calcium 7.7 L (8.4-10.2) mg/dL ALT (4-49) U/L Total Protein 5.8 L (6.3-8.2) g/dL Albumin 2.8 L (3.5-5.0) g/dL Urine Protein (Negative) Ur Leukocyte Esterase (Negative) Urine Mucus (None) /hpf Microbiology - Last 24 Hours (Table) 03/31/22 19:10 Gram Stain - Preliminary Groin Wound Culture - Preliminary Diabetes panel 03/31/22 04/01/22 Range/Units 19:20 10:50 Sodium 135 L 135 L (137-145) mmol/L Potassium 4.0 3.7 (3.5-5.1) mmol/L Chloride 104 105 (98-107) mmol/L Carbon Dioxide 26 26 (22-30) mmol/L BUN 9 10 (9-20) mg/dL Creatinine 0.80 0.82 (0.66-1.25) mg/dL Glucose 100 H 166 H (74-99) mg/dL Calcium 8.4 7.7 L (8.4-10.2) mg/dL AST 31 31 (17-59) U/L ALT 54 H 40 (4-49) U/L Alkaline Phosphatase 95 87 (38-126) U/L Total Protein 6.7 5.8 L (6.3-8.2) g/dL Albumin 3.3 L 2.8 L (3.5-5.0) g/dL Calcium panel 03/31/22 04/01/22 Range/Units 19:20 10:50 Calcium 8.4 7.7 L (8.4-10.2) mg/dL Albumin 3.3 L 2.8 L (3.5-5.0) g/dL Pituitary panel 03/31/22 04/01/22 Range/Units 19:20 10:50 Sodium 135 L 135 L (137-145) mmol/L Potassium 4.0 3.7 (3.5-5.1) mmol/L Chloride 104 105 (98-107) mmol/L Carbon Dioxide 26 26 (22-30) mmol/L BUN 9 10 (9-20) mg/dL Creatinine 0.80 0.82 (0.66-1.25) mg/dL Glucose 100 H 166 H (74-99) mg/dL Calcium 8.4 7.7 L (8.4-10.2) mg/dL Adrenal panel 03/31/22 04/01/22 Range/Units 19:20 10:50 Sodium 135 L 135 L (137-145) mmol/L Potassium 4.0 3.7 (3.5-5.1) mmol/L Chloride 104 105 (98-107) mmol/L Carbon Dioxide 26 26 (22-30) mmol/L BUN 9 10 (9-20) mg/dL Creatinine 0.80 0.82 (0.66-1.25) mg/dL Glucose 100 H 166 H (74-99) mg/dL Calcium 8.4 7.7 L (8.4-10.2) mg/dL Total Bilirubin 1.0 0.8 (0.2-1.3) mg/dL AST 31 31 (17-59) U/L ALT 54 H 40 (4-49) U/L Alkaline Phosphatase 95 87 (38-126) U/L Total Protein 6.7 5.8 L (6.3-8.2) g/dL Albumin 3.3 L 2.8 L (3.5-5.0) g/dL - Imaging CT scan - abdomen: report reviewed, image reviewed CT scan - pelvis: report reviewed, image reviewed Assessment and Plan Assessment: The patient states that he is not in much pain. He feels as if the fluid collection in the perineal area that extends down to the right buttock has grown significantly larger throughout the day. He reports a large amount of drainage coming out of the opening. Vitals are stable and he is on RA. Tmax today 99.0. UA unremarkable. Wound culture and blood culture in progress. Abdomen/pelvis CT consistent with cellulitis, reviewed by Dr. Francisco. (1) Abscess or cellulitis of groin Current Visit: Yes Status: Acute Code(s): LCE0798 - SNOMED Code(s): 501455658 Plan: - Continue antibiotics, per ID recommendations - Awaiting final wound and blood cultures - Continue current pain regimen - It is my impression that the patient may have a fluid collection in the right posterior perineum approaching the buttock. I have recommended that the patient undergo incision and drainage tomorrow under general anesthesia. The open wound will be enlarged, and a second incision posteriorly is anticipated. From there, the region may be examined and any additional areas requiring drainage will be addressed at that time. The rationale for this has been reviewed with the patient, and he has been made aware of potential risks which include anesthesia, bleeding, infection, and the possible need for additional drainage procedures. Impression and plan of care have been directed as dictated by the signing physician. Negar Villasenor nurse practitioner acting as scribe for signing physician. Negar Villasenor [facility] Palliative Care/Urology [facility] [id number] Email: [email or web address] I have personally seen and examined the patient, reviewed the documentation and agree with the assessment and plan as written. Number of minutes spent on the visit: 40. Tr Francisco MD
[2022-04-01] MEDS ORDERED: VANCOMYCIN 2,250 MG in SODIUM CHLORIDE 0.9% 500 ML 500 ML IVPB SCH (16:00)
--- NOTE | 2022-04-02 00:39 | P.CONS ---
History of Present Illness - Reason for Consult Consult date: 04/01/22 Right groin abscess Requesting physician: Yakelin Castañeda - Chief Complaint Right groin pain and swelling x few days - History of Present Illness Patient is a 32-year-old male with a past medical history significant for hypertension patient is morbidly obese presenting to the hospital with right groin pain swelling or redness patient symptoms started last week when he initially noticed a painless lump in his right groin area that has subsequently increased in size becoming more painful patient was describing the pain to be more of a sharp nature intensity of almost 7 out of 10 and no radiation with associated swelling and redness and apparently did have some drainage with these symptoms the patient was evaluated on arrival to the ER patient did have a low-grade fever of 99.6F the patient did have elevated white count kidney function has been normal the patient did have a scrotal ultrasound done today shows cellulitis but no drainable abscess, patient also have a CT of abdominal pelvis with did shows inflammatory changes in the subcutaneous fat in the right side of the perineum without fluid collection patient was initially on vancomycin antibiotic has been switched over to Zosyn infectious symptoms was consulted for further management of antibiotic therapy Review of Systems Positive point has been mentioned in the HPI rest of the systems are negative Past Medical History Past Medical History: Hypertension History of Any Multi-Drug Resistant Organisms: None Reported Past Surgical History: No Surgical Hx Reported Additional Past Surgical History / Comment(s): Left foot surgery during childhood Past Psychological History: ADD/ADHD Smoking Status: Current every day smoker Past Alcohol Use History: Daily Past Drug Use History: Marijuana - Past Family History Mother Family Medical History: Hypertension Medications and Allergies Home Medications Medication Instructions Recorded Confirmed Type Ergocalciferol [Vitamin D2 (1250 1,250 mcg PO DIRECTED 09/16/21 04/01/22 History Mcg = 27529 Iu)] Folic Acid 1 mg PO DIRECTED 09/16/21 04/01/22 History Amitriptyline HCl [Elavil] 25 mg PO DIRECTED 04/01/22 04/01/22 History Famotidine [Pepcid] 20 mg PO DIRECTED 04/01/22 04/01/22 History Cephalexin [Keflex] 500 mg PO Q6HR 14 Days #56 cap 04/04/22 Rx amLODIPine [Norvasc] 10 mg PO DAILY #30 tab 04/04/22 Rx Allergies Allergy/AdvReac Type Severity Reaction Status Date / Time nickel Allergy Unknown Verified 04/02/22 15:43 heparin AdvReac Nausea Verified 04/02/22 15:43 lisinopril AdvReac Cough Verified 04/02/22 15:43 Physical Exam Vitals: Vital Signs Temp Pulse Pulse Resp BP BP Pulse Ox 04/01/22 07:55 84 18 158/102 96 04/01/22 07:00 98.4 F 87 18 156/98 98 04/01/22 02:59 98.6 F 85 16 156/100 98 04/01/22 00:03 99.0 F 85 16 151/100 03/31/22 20:15 95 16 152/94 98 03/31/22 16:42 99.6 F 120 H 20 179/104 98 Intake and Output 03/31/22 04/01/22 04/01/22 22:59 06:59 14:59 Intake Total 360 Balance 360 Intake: Oral 360 Other: Weight 172.365 kg 172.365 kg GENERAL DESCRIPTION: Middle-aged male lying in bed, no distress. No tachypnea or accessory muscle of respiration use. HEENT: Shows Pallor , no scleral icterus. Oral mucous membrane is dry. No pharyngeal erythema or thrush NECK: Trachea central, no thyromegaly. LUNGS: Unlabored breathing. Clear to auscultation anteriorly. No wheeze or crackle. HEART: S1, S2, regular rate and rhythm. No loud murmur ABDOMEN: Soft, no tenderness , guarding or rigidity, no organomegaly GENITOURINARY: Right perineal area did have swelling redness and area that is draining some purulent material EXTREMITIES: No edema of feet. SKIN: No rash, no masses palpable. NEUROLOGICAL: The patient is awake, alert, oriented x3, mood and affect normal. Results CBC & Chem 7: 04/03/22 04:48 04/04/22 05:56 Labs: Abnormal Lab Results - Last 24 Hours (Table) 03/31/22 03/31/22 03/31/22 Range/Units 19:20 19:20 22:08 WBC 16.7 H (3.8-10.6) k/uL MCV 101.7 H (80.0-100.0) fL MCH 36.0 H (25.0-35.0) pg Neutrophils # 12.8 H (1.3-7.7) k/uL Sodium 135 L (137-145) mmol/L Glucose 100 H (74-99) mg/dL Calcium (8.4-10.2) mg/dL ALT 54 H (4-49) U/L Total Protein (6.3-8.2) g/dL Albumin 3.3 L (3.5-5.0) g/dL Urine Protein Trace H (Negative) Ur Leukocyte Esterase Trace H (Negative) Urine Mucus Occasional H (None) /hpf 04/01/22 Range/Units 10:50 WBC (3.8-10.6) k/uL MCV (80.0-100.0) fL MCH (25.0-35.0) pg Neutrophils # (1.3-7.7) k/uL Sodium 135 L (137-145) mmol/L Glucose 166 H (74-99) mg/dL Calcium 7.7 L (8.4-10.2) mg/dL ALT (4-49) U/L Total Protein 5.8 L (6.3-8.2) g/dL Albumin 2.8 L (3.5-5.0) g/dL Urine Protein (Negative) Ur Leukocyte Esterase (Negative) Urine Mucus (None) /hpf Microbiology - Last 24 Hours (Table) 03/31/22 19:10 Wound Culture - Preliminary Groin Assessment and Plan (1) Abscess or cellulitis of groin Status: Acute Code(s): [id number] - SNOMED Code(s): 017877118 Plan: 1patient with the right groin/perineal area swelling and redness and drainage concerning for cellulitis likely from gram-positive skin chyna underlying chronic infection and less likely but not entirely excluded 2await urology evaluation and need for any surgical drainage and deep culture 3-continue with the Zosyn while waiting for the cultures to finalize We will follow on clinical condition and cultures to further adjust medication if needed Thank you for this consultation will follow this patient with you Time with Patient: Greater than 30
[2022-04-02] MEDS: PIPERACILLIN-TAZOBACTAM 3.375 GM in SODIUM CHLORIDE 0.9% 100 ML IVPB SCH (03:22)
[2022-04-02] MEDS: SODIUM CHLORIDE 0.9% 1,000 ML IV SCH ×3 (03:26→20:04)
[2022-04-02] MEDS: HEPARIN SODIUM,PORCINE/PF 5,000 UNIT/0.5 ML SYRINGE SQ SCH (08:09)
[2022-04-02] MEDS: amLODIPine 10 MG TAB PO SCH (08:09)
[2022-04-02 10:19] LABS: HCT 43.5 % (39.6-50.0); HGB 15.1 g/dL (13.0-17.0); MCH 35.5 pg (27.0-32.0); MCHC 34.7 g/dL (32.0-37.0); MCV 102.4 fL (80.0-97.0); Mean Platelet Volume 10.2 fL (9.5-12.2); NRBC Per 100 WBC 0 /100 WBCS (0.0-0.0); Platelet Count 291 X 10*3/uL (140-440); RBC 4.25 X 10*6/uL (4.40-5.60); RDW 13.5 % (11.5-14.5); WBC 10.63 X 10*3/uL (4.50-10.00)
[2022-04-02] MEDS ORDERED: VANCOMYCIN IV PER PHARMACY 1 EACH MISC MISCELLANE PRN (10:28)
[2022-04-02 10:33] LABS: African American GFR (CKD) 130.5 (60.0-200.0); Anion Gap 11.1 mmol/L (10.00-18.00); BUN/Creat Ratio 9.44 Ratio (12.00-20.00); Blood Urea Nitrogen 8.5 mg/dL (9.0-27.0); Calcium 8.4 mg/dL (8.7-10.3); Carbon Dioxide 24.9 mmol/L (20.0-27.5); Non-African American GFR(CKD) 112.6 (60.0-200.0); Potassium 4.1 mmol/L (3.5-5.5)
[2022-04-02] MEDS: VANCOMYCIN 2,250 MG in SODIUM CHLORIDE 0.9% 500 ML 500 ML IVPB SCH ×2 (11:08→20:22)
[2022-04-02] MEDS: AMPICILLIN-SULBACTAM 3 GM in SODIUM CHLORIDE 0.9% 100 ML IVPB SCH ×2 (12:26→20:21)
[2022-04-02] MEDS ORDERED: VANCOMYCIN TROUGH DUE 1 EACH MISC MISCELLANE ONE (15:00)
[2022-04-02] MEDS ORDERED: IV FLUID CONTINUATION 1,000 ML IV ONE (15:37)
[2022-04-02] MEDS ORDERED: ONDANSETRON 4 MG/2 ML VIAL ONE (15:51)
[2022-04-02] MEDS ORDERED: ONDANSETRON 4 MG/2 ML VIAL IVP ONE (15:52)
[2022-04-02] MEDS ORDERED: DEXAMETHASONE SOD PHOSPHATE 4 MG/ML 1 ML VIAL IVP ONE (15:52)
[2022-04-02] MEDS ORDERED: HYDROmorphone (PF) 1 MG/ML ONE (17:39)
[2022-04-02] MEDS ORDERED: MIDAZOLAM 2 MG/2 ML VIAL ONE (17:39)
[2022-04-02] MEDS ORDERED: SUCCINYLCHOLINE CHLORIDE 200 MG/10 ML VIAL IV ONE (17:39)
[2022-04-02] MEDS ORDERED: KETAMINE 10 MG/ML 20 ML VIAL ONE (17:39)
[2022-04-02] MEDS ORDERED: ALBUTEROL INHALER 60 PUFF/8 GM INHALER (MHU) INHALATION ONE (17:39)
[2022-04-02] MEDS ORDERED: fentaNYL (PF) 50 MCG/ML 2 ML AMP ONE (17:39)
[2022-04-02] MEDS ORDERED: PROPOFOL 10 MG/ML 20 ML VIAL IV ONE (17:39)
[2022-04-02] MEDS ORDERED: LIDOCAINE 2% INJ 20 MG/ML (2 ML VIAL) ONE (17:39)
--- NOTE | 2022-04-02 18:09 | P.PN ---
Subjective Progress Note Date: 04/02/22 (delayed charting seen at 1115) The patient is a 32-year-old male with poorly controlled hypertension who presented to the emergency room with concerns of a right groin abscess. In the ER he underwent extensive evaluation. On arrival his vital signs were remarkable for a pulse of 120 and a blood pressure 179/104. Laboratory evaluation was remarkable for leukocytosis of 16.7. CT abdomen and pelvis revealed inflammatory changes in the subcutaneous fat in the right side of the perineum consistent with cellulitis with no drainable fluid collection. There was also fatty infiltration of the liver. Scrotal ultrasound revealed no acute abnormalities. In the ER arrangements were made for admission secondary to right perennial abscess with sepsis. Patient was placed on Zosyn and infectious disease was consulted. Patient seen and examined at bedside. He complains of nausea every time he received a heparin injection. Denies any chest pain, shortness of breath. He states the swelling in his scrotal area is down since yesterday and is feeling slightly better. General: ill appearing, no distress, appears at stated age Derm: warm, dry Head: atraumatic, normocephalic, symmetric Eyes: EOMI, no lid lag, anicteric sclera Mouth: no lip lesion, mucus membranes moist Cardiovascular: S1S2 reg, no murmur, positive posterior tibial pulse bilateral, Lungs: CTA bilateral, no rhonchi, no rales , no accessory muscle use Abdominal: soft, nontender to palpation, no guarding, no appreciable organomegaly : approx 0.25 cm oprning in the perinum with thin, brown tinged drainage, sourround purple tinge, no crepitus, small opening medical right thigh without drainage noted. Ext: no gross muscle atrophy, no edema, no contractures Neuro: CN II-XI grossly intact, no focal neuro deficits Psych: Alert, oriented, appropriate affect Assessment/plan: Staph aureus Right perineal abscess with sepsis POA -Zosyn transitioned to Unasyn and vancomycin reinitiated -Infectious disease recs appreciated -Neurology recommendations appreciated. Plan is for I&D in the OR 04/02/22 -IV fluids -toradol, add norco - Blood cultures negative to date Hypertension -Patient was not currently on any medications - Continue Norvasc -Follow blood pressures Morbid obesity with BMI 50.1 - structured outpatient weight loss DVT prophylaxis: Change heparin to Lovenox Anticipated discharge date: in am if does not require IV abx and cultures finalized Anticipated discharge place: Home Active Medications Generic Name Dose Route Start Last Admin Trade Name Freq PRN Reason Stop Dose Admin Hydrocodone Bitart/Acetaminophen 1 each 04/01/22 09:09 04/01/22 20:03 Hydrocodone/Apap 5-325mg 1 Each Tab PO 1 each Q6HR PRN Administration Pain Amlodipine Besylate 10 mg 04/01/22 09:00 04/02/22 08:09 Amlodipine 10 Mg Tab PO 10 mg DAILY BRITTNI Administration Enoxaparin Sodium 40 mg 04/03/22 09:00 Enoxaparin 40 Mg/0.4 Ml Syringe SQ DAILY BRITTNI Sodium Chloride 1,000 mls @ 130 mls/hr 03/31/22 19:00 04/02/22 08:13 Saline 0.9% IV 130 mls/hr .Q7H42M BRITTNI Administration Ampicillin Sodium/Sulbactam 100 mls @ 200 mls/hr 04/02/22 12:00 04/02/22 12:26 Sodium 3 gm/ Sodium Chloride IVPB 200 mls/hr Q6HR BRITTNI Administration Protocol Vancomycin HCl 2,250 mg/ 500 mls @ 167 mls/hr 04/02/22 11:00 04/02/22 11:08 Sodium Chloride IVPB 167 mls/hr Q8H BRITTNI Administration Ketorolac Tromethamine 15 mg 03/31/22 23:02 04/01/22 20:13 Ketorolac 15 Mg/Ml 1 Ml Vial IVP 04/03/22 23:03 15 mg Q6HR PRN Administration Moderate Pain (Scale 4 to 6) Miscellaneous Information 0 each 04/03/22 18:00 Vancomycin Trough Due 1 Each Misc MISCELLANE 04/03/22 18:01 DIRECTED ONE Naloxone HCl 0.2 mg 03/31/22 23:02 Naloxone 0.4 Mg/Ml 1 Ml Vial IV Q2M PRN Opioid Reversal Objective - Vital Signs Vital signs: Vital Signs Temp 98.6 F 04/02/22 15:38 Pulse 84 04/02/22 15:38 Resp 18 04/02/22 15:38 BP 146/88 04/02/22 15:38 Pulse Ox 96 04/02/22 15:38 FiO2 Intake & Output 04/01/22 04/02/2204/02/22 18:59 06:59 18:59 Intake Total 478 200 Balance 478 200 Weight 172.365 kg Intake: IV 200 Oral 478 Other: # Voids 2 1 2 - Labs CBC & Chem 7: 04/02/22 06:13 04/02/22 06:13 Labs: Abnormal Lab Results - Last 24 Hours (Table) 04/02/22 04/02/22 Range/Units 06:13 06:13 WBC 10.63 H (4.50-10.00) X 10*3/uL RBC 4.25 L (4.40-5.60) X 10*6/uL MCV 102.4 H (80.0-97.0) fL MCH 35.5 H (27.0-32.0) pg BUN 8.5 L (9.0-27.0) mg/dL BUN/Creatinine Ratio 9.44 L (12.00-20.00) Ratio Calcium 8.4 L (8.7-10.3) mg/dL Microbiology - Last 24 Hours (Table) 03/31/22 19:10 Gram Stain - Preliminary Groin Wound Culture - Preliminary Presumptive Staph aureus 03/31/22 19:20 Blood Culture - Preliminary Blood No Growth after 24 hours 03/31/22 19:05 Blood Culture - Preliminary Blood No Growth after 24 hours
[2022-04-02] MEDS ORDERED: HYDROcodone/APAP 5-325MG 1 EACH TAB PO PRN (18:35)
--- NOTE | 2022-04-02 18:35 | P.OP ---
Date of Procedure: 04/02/22 Preoperative Diagnosis: Perineal abscess Postoperative Diagnosis: Same Procedure(s) Performed: Incision and drainage of perineal abscess Anesthesia: DANIS Surgeon: Tr Francisco Estimated Blood Loss (ml): 20 IV fluids (ml): 400 Pathology: none sent Condition: stable Disposition: PACU Indications for Procedure: Patient is a 32-year-old white male admitted with a right-sided perineal abscess, which is draining spontaneously. CT scan does not show a fluid collection. However, some purulence can be expressed through the perineal incision and he thus comes for a formal incision and drainage. Operative Findings: Right perineal abscess, extending posteriorly. Description of Procedure: Patient was taken to the operating room and placed in dorsal lithotomy position. The external genitalia was prepped and draped sterilely. The Bovie electrocautery was used to extend the perineal incision enough to allow digital dissection to be performed. It was possible to advance a finger in a cephalad direction, as there was induration in this area although there was no actual fluid collection. At the end of this tract, a counterincision was made. Digital dissection was then performed posteriorly, exposing an abscess cavity. Cultures were obtained. A second counterincision was made at the end of this tract. Each wound was then thoroughly irrigated with warm normal saline. There were no additional areas of fluctuance or drainage, and thus it appeared that the abscess had been drained completely. 2 [place] drains were placed, one extending from the original incision to the upper counterincision, the other extending from the original incision to the lower counterincision. The drains were sutured to the skin using 2-0 nylon suture. Iodoform packing was then used to pack the abscess cavity via the original incision. Once this was completed, gauze dressings were applied over the incisions followed by a scrotal support. All sponge and needle counts were correct. The patient tolerated the procedure well was taken to come stable condition.
[2022-04-02] MEDS ORDERED: HYDROmorphone 1 MG/ML 1 ML SYRINGE IVP PRN (18:36)
[2022-04-02] MEDS: KETOROLAC 15 MG/ML 1 ML VIAL IVP PRN (21:57)
--- NOTE | 2022-04-02 23:45 | P.PN ---
Subjective Progress Note Date: 04/02/22 Principal diagnosis: Right perineum abscess and cellulitis Patient is a 32-year male presented to hospital with right perineal pain swelling redness and drainage in this patient has been diagnosed with a right perineal abscess. On today's evaluation that is 04/02/2022 the patient denies having any fever or any chills he is breathing comfortably on room air denies any chest pain or shortness of breath or cough pain discomfort to the right medial area slightly decreased intensity still having some drainage no urinary symptoms and no diarrhea Objective - Vital Signs Vital signs: Vital Signs Temp 97.4 F L 04/02/22 07:00 Pulse 88 04/02/22 07:00 Resp 18 04/02/22 07:00 BP 140/94 04/02/22 07:00 Pulse Ox 97 04/02/22 07:00 FiO2 Intake & Output 04/01/22 04/02/22 04/02/22 18:59 06:59 18:59 Intake Total 478 Balance 478 Weight 172.365 kg Intake: Oral 478 Other: # Voids 2 1 - Exam GENERAL DESCRIPTION: Middle-aged male lying in bed, no distress. No tachypnea or accessory muscle of respiration use. LUNGS: Unlabored breathing. Clear to auscultation anteriorly. No wheeze or crackle. HEART: S1, S2, regular rate and rhythm. No loud murmur ABDOMEN: Soft, no tenderness : Right perineal area did have swelling redness slightly decreased did have small area of drainage EXTREMITIES: No edema of feet. - Labs CBC & Chem 7: 04/02/22 06:13 04/02/22 06:13 Labs: Abnormal Lab Results - Last 24 Hours (Table) 04/01/22 04/02/22 Range/Units 10:50 06:13 WBC 10.63 H (4.50-10.00) X 10*3/uL RBC 4.25 L (4.40-5.60) X 10*6/uL MCV 102.4 H (80.0-97.0) fL MCH 35.5 H (27.0-32.0) pg Sodium 135 L (137-145) mmol/L Glucose 166 H (74-99) mg/dL Calcium 7.7 L (8.4-10.2) mg/dL Total Protein 5.8 L (6.3-8.2) g/dL Albumin 2.8 L (3.5-5.0) g/dL Microbiology - Last 24 Hours (Table) 03/31/22 19:10 Gram Stain - Preliminary Groin Wound Culture - Preliminary Presumptive Staph aureus 03/31/22 19:20 Blood Culture - Preliminary Blood No Growth after 24 hours 03/31/22 19:05 Blood Culture - Preliminary Blood No Growth after 24 hours Assessment and Plan (1) Abscess or cellulitis of groin Current Visit: Yes Status: Acute Code(s): [id number] - SNOMED Code(s): 839261498 (2) Cellulitis of groin Current Visit: Yes Status: Acute Code(s): L03.314 - CELLULITIS OF GROIN SNOMED Code(s): 94109289 Plan: 1patient with the right groin/perineal area swelling and redness and drainage concerning for cellulitis likely from gram-positive skin chyna underlying ch ronic infection and less likely but not entirely excluded 2Patient has been evaluated by urology possible drainage of this abscess this afternoon. 3local wound culture currently showing staph auris we will discontinue Zosyn start the patient on vancomycin and Unasyn while waiting for the culture to finalize and monitor his clinical course closely Time with Patient: Greater than 30
[2022-04-03] MEDS: SODIUM CHLORIDE 0.9% 1,000 ML IV SCH ×3 (01:21→15:22)
[2022-04-03] MEDS: AMPICILLIN-SULBACTAM 3 GM in SODIUM CHLORIDE 0.9% 100 ML IVPB SCH ×4 (02:31→20:32)
[2022-04-03] MEDS: VANCOMYCIN 2,250 MG in SODIUM CHLORIDE 0.9% 500 ML 500 ML IVPB SCH ×2 (02:31→11:53)
[2022-04-03] MEDS: ENOXAPARIN 40 MG/0.4 ML SYRINGE SQ SCH (08:07)
[2022-04-03] MEDS: amLODIPine 10 MG TAB PO SCH (08:08)
--- NOTE | 2022-04-03 09:10 | P.PN ---
Subjective Progress Note Date: 04/03/22 No new complaints today. Patient says his pain in the perineum is improving. No fevers, chills. Gen: awake, alert HEENT: normocephalic, atraumatic, good hearing acuity, moist mucous membranes Resp: good air exchange, breathing comfortably with no accessory muscle use CVS: good distal perfusion x 4, GI: soft, NTTP, ND : no SPT, no CVAT, chicas catheter not present MSK: no pitting edema, no clubbing, reduced swelling in the perineum, drain in place Neuro: non-focal, moving all extremities Psych: cooperative, euthymic mood Assessment/plan: Staph aureus Right perineal abscess with sepsis POA -Zosyn transitioned to Unasyn and vancomycin reinitiated -Infectious disease recs appreciated -Urology recommendations appreciated. s/p I&D in the OR 04/02/22 -IV fluids -toradol, add norco - Blood cultures negative to date Hypertension -Patient was not currently on any medications - Continue Norvasc -Follow blood pressures Morbid obesity with BMI 50.1 - structured outpatient weight loss DVT prophylaxis: Change heparin to Lovenox Anticipated discharge date: in am if does not require IV abx and cultures finalized Anticipated discharge place: Home Objective - Vital Signs Vital signs: Vital Signs Temp 98 F 04/03/22 07:00 Pulse 75 04/03/22 08:06 Resp 20 04/03/22 07:00 BP 143/95 04/03/22 07:00 Pulse Ox 96 04/03/22 08:06 FiO2 Intake & Output 04/02/22 04/03/22 04/03/22 18:59 06:59 18:59 Intake Total 700 Output Total 20 Balance 680 Intake: IV 700 Output: Estimated Blood Loss 20 Other: Voiding Method Toilet Urinal # Voids 2 2 - Labs CBC & Chem 7: 04/02/22 06:13 04/02/22 06:13 Labs: Abnormal Lab Results - Last 24 Hours (Table) 04/02/22 04/02/22 Range/Units 06:13 06:13 WBC 10.63 H (4.50-10.00) X 10*3/uL RBC 4.25 L (4.40-5.60) X 10*6/uL MCV 102.4 H (80.0-97.0) fL MCH 35.5 H (27.0-32.0) pg BUN 8.5 L (9.0-27.0) mg/dL BUN/Creatinine Ratio 9.44 L (12.00-20.00) Ratio Calcium 8.4 L (8.7-10.3) mg/dL Microbiology - Last 24 Hours (Table) 04/02/22 20:59 Anaerobic Culture - Preliminary Perianal 04/02/22 20:59 Wound Culture - Preliminary Other - Other 03/31/22 19:05 Blood Culture - Preliminary Blood No Growth after 48 hours 03/31/22 19:20 Blood Culture - Preliminary Blood No Growth after 48 hours 03/31/22 19:10 Gram Stain - Preliminary Groin Wound Culture - Preliminary Presumptive Staph aureus
[2022-04-03 09:19] LABS: Basophils # (A) 0.06 X 10*3/uL (0.00-0.10); Basophils % (A) 0.4 %; Eosinophils # (A) 0.01 X 10*3/uL (0.04-0.35); Eosinophils % (A) 0.1 %; HCT 41.9 % (39.6-50.0); HGB 13.9 g/dL (13.0-17.0); Immature Grans, Automated 0.8 %; Lymphocytes # (A) 1.58 X 10*3/uL (0.90-5.00); MCH 34.7 pg (27.0-32.0); MCHC 33.2 g/dL (32.0-37.0); MCV 104.5 fL (80.0-97.0); Mean Platelet Volume 10.3 fL (9.5-12.2); Monocytes # (A) 0.99 X 10*3/uL (0.20-1.00); Monocytes % (A) 6.9 %; NRBC Per 100 WBC 0 /100 WBCS (0.0-0.0); Neutrophils # (A) 11.65 X 10*3/uL (1.80-7.70); Neutrophils % (A) 80.8 %; Platelet Count 304 X 10*3/uL (140-440); RBC 4.01 X 10*6/uL (4.40-5.60); RDW 13.2 % (11.5-14.5); WBC 14.41 X 10*3/uL (4.50-10.00)
[2022-04-03 09:36] LABS: Anion Gap 11.7 mmol/L (10.00-18.00); BUN/Creat Ratio 12.88 Ratio (12.00-20.00); Blood Urea Nitrogen 10.3 mg/dL (9.0-27.0); Calcium 8.5 mg/dL (8.7-10.3); Carbon Dioxide 21.3 mmol/L (20.0-27.5); Non-African American GFR(CKD) 118.2 (60.0-200.0); Potassium 4.8 mmol/L (3.5-5.5)
--- NOTE | 2022-04-03 12:59 | P.PN ---
Subjective Progress Note Date: 04/03/22 Principal diagnosis: Perineal abscess The patient is a 32-year-old male presented to the emergency department on 03/31/22 with complaints of an abscess to the right groin. Patient states he first noticed a painless lump on . On Thursday it became painful and then began draining. He admits to having fever, chills, and nausea. No vomiting or abdominal pain. Reported some scrotal swelling, but denies scrotal pain. Ultrasound of the scrotum shows skin thickening without evidence for organizing fluid collection and appropriate arterial and venous waveforms. CT is suggest wenceslao of cellulitis, no drainable fluid collection is seen. A wound culture was sent. ID is following. 04/02 The patient states that he is not in much pain. He feels as if the fluid collection in the perineal area that extends down to the right buttock has grown significantly larger throughout the day. He reports a large amount of drainage coming out of the opening. Vitals are stable and he is on RA. Tmax today 99.0. UA unremarkable. Wound culture and blood culture in progress. Abdomen/pelvis CT consistent with cellulitis, reviewed by Dr. Francisco. 04/03 Patient went to the OR for an I&D of perineal abscess yesterday. He had 2 rebecca drains placed. He is feeling much better today. Objective - Vital Signs Vital signs: Vital Signs Temp 98 F 04/03/22 07:00 Pulse 75 04/03/22 08:06 Resp 20 04/03/22 07:00 BP 143/95 04/03/22 07:00 Pulse Ox 96 04/03/22 08:06 FiO2 Intake & Output 04/02/22 04/03/22 04/03/22 18:59 06:59 18:59 Intake Total 700 240 Output Total 20 Balance 680 240 Intake: IV 700 Oral 240 Output: Estimated Blood Loss 20 Other: Voiding Method Toilet Urinal # Voids 2 2 1 - Exam General: Well developed, well nourished. No acute distress. HEENT: Head is atraumatic, normocephalic. Lungs: Clear to auscultation bilaterally. No wheezes rales or rhonchi. Respirations even and nonlabored. Abdomen/GI: Soft, obese, abdomen non-distended, non-tender : No suprapubic tenderness. Scrotum soft and reddened. Skin: Warm and dry. 2 rebecca drains to perineum. Inner right thigh reddened and warm. Neurologic: Awake, alert and oriented times 3. CN II-XII grossly intact. No foc al deficits. Psychiatric: Appropriate mood and affect. - Labs CBC & Chem 7: 04/03/22 04:48 04/03/22 04:48 Labs: Abnormal Lab Results - Last 24 Hours (Table) 04/03/22 04/03/22 Range/Units 04:48 04:48 WBC 14.41 H (4.50-10.00) X 10*3/uL RBC 4.01 L (4.40-5.60) X 10*6/uL MCV 104.5 H (80.0-97.0) fL MCH 34.7 H (27.0-32.0) pg Immature Gran # 0.12 H (0.00-0.04) X 10*3/uL Neutrophils # 11.65 H (1.80-7.70) X 10*3/uL Eosinophils # 0.01 L (0.04-0.35) X 10*3/uL Glucose 135 H (70-110) mg/dL Calcium 8.5 L (8.7-10.3) mg/dL Microbiology - Last 24 Hours (Table) 03/31/22 19:10 Gram Stain - Final Groin Wound Culture - Final Staphylococcus aureus 04/02/22 20:59 Anaerobic Culture - Preliminary Perianal 04/02/22 20:59 Wound Culture - Preliminary Other - Other 03/31/22 19:05 Blood Culture - Preliminary Blood No Growth after 48 hours 03/31/22 19:20 Blood Culture - Preliminary Blood No Growth after 48 hours Assessment and Plan Assessment: The patient is in bed and eating breakfast. He denies any nausea or vomiting. He states his pain has been well controlled. He has been afebrile and VSS. WBC 14.4 today. Right groin wound culture from 03/31 with staphlococcus aureus. Blood cultures negative. Wound cultures obtained in OR yesterday pending. The patient's dressings were changed, perineal incision was repacked with iodoform. [place] drains x 2 draining sero/sang drainage. Patient's was at the bedside and taught how to change dressings. wardrobe manager called regarding possible wound care visiting nurse upon discharge. (1) Abscess or cellulitis of groin Current Visit: Yes Status: Acute Code(s): [id number] - SNOMED Code(s): 292054359 Plan: - Continue antibiotics, appreciate ID recommendations - Continue current pain regimen - Patient may be discharged from a urological stand point - Discharge home with visiting wound care nurse - Follow up in the office with Dr. Francisco in one week Impression and plan of care have been directed as dictated by the signing physician. Negar Villasenor nurse practitioner acting as scribe for signing physician. Negar Villasenor [facility] Palliative Care/Urology [facility] [id number] Email: [email or web address]
[2022-04-03] MEDS ORDERED: VANCOMYCIN TROUGH DUE 1 EACH MISC MISCELLANE ONE (18:00)
[2022-04-03] MEDS: KETOROLAC 15 MG/ML 1 ML VIAL IVP PRN (20:32)
--- NOTE | 2022-04-03 23:05 | P.PN ---
Subjective Progress Note Date: 04/03/22 Principal diagnosis: Right perineum abscess and cellulitis Patient is a 32-year male presented to hospital with right perineal pain swelling redness and drainage in this patient has been diagnosed with a right perineal abscess.Patient is status post surgical drainage of the right perianal abscess by urology on 04/02/2022. On today's evaluation that is 04/03/2022, the patient denies having any fever or chills the patient pain to the right perineal area has slightly decreased in intensity but denies having any chest pain or shortness with or cough no nausea no vomiting no abdominal pain no diarrhea Objective - Vital Signs Vital signs: Vital Signs Temp 98 F 04/03/22 07:00 Pulse 75 04/03/22 08:06 Resp 20 04/03/22 07:00 BP 143/95 04/03/22 07:00 Pulse Ox 96 04/03/22 08:06 FiO2 Intake & Output 04/02/22 04/03/22 04/03/22 18:59 06:59 18:59 Intake Total 700 240 Output Total 20 Balance 680 240 Intake: IV 700 Oral 240 Output: Estimated Blood Loss 20 Other: Voiding Method Toilet Urinal # Voids 2 2 1 - Exam GENERAL DESCRIPTION: Middle-aged male lying in bed, no distress. No tachypnea or accessory muscle of respiration use. LUNGS: Unlabored breathing. Clear to auscultation anteriorly. No wheeze or crackle. HEART: S1, S2, regular rate and rhythm. No loud murmur ABDOMEN: Soft, no tenderness : Right perineal area did have swelling redness slightly decreased did have small area of drainage EXTREMITIES: No edema of feet. - Labs CBC & Chem 7: 04/03/22 04:48 04/03/22 04:48 Labs: Abnormal Lab Results - Last 24 Hours (Table) 04/03/22 04/03/22 Range/Units 04:48 04:48 WBC 14.41 H (4.50-10.00) X 10*3/uL RBC 4.01 L (4.40-5.60) X 10*6/uL MCV 104.5 H (80.0-97.0) fL MCH 34.7 H (27.0-32.0) pg Immature Gran # 0.12 H (0.00-0.04) X 10*3/uL Neutrophils # 11.65 H (1.80-7.70) X 10*3/uL Eosinophils # 0.01 L (0.04-0.35) X 10*3/uL Glucose 135 H (70-110) mg/dL Calcium 8.5 L (8.7-10.3) mg/dL Microbiology - Last 24 Hours (Table) 03/31/22 19:10 Gram Stain - Final Groin Wound Culture - Final Staphylococcus aureus 04/02/22 20:59 Anaerobic Culture - Preliminary Perianal 04/02/22 20:59 Wound Culture - Preliminary Other - Other 03/31/22 19:05 Blood Culture - Preliminary Blood No Growth after 48 hours 03/31/22 19:20 Blood Culture - Preliminary Blood No Growth after 48 hours Assessment and Plan (1) Abscess or cellulitis of groin Current Visit: Yes Status: Acute Code(s): [id number] - SNOMED Code(s): 786915016 (2) Cellulitis of groin Current Visit: Yes Status: Acute Code(s): L03.314 - CELLULITIS OF GROIN SNOMED Code(s): 77341668 Plan: 1patient with the right groin/perineal area swelling and redness and drainage concerning for cellulitis likely from gram-positive skin chyna underlying chronic infection and less likely but not entirely excluded 2Patient has been evaluated by urology And the patient is status post surgical drainage of the abscess on 04/02/2022. 3local culture has been finalized with MSSA with a deep OR cultures are currently pending we will continue the patient on Unasyn discontinue vancomycin with the discharge antibiotic on the base of his clinical response as well as deep culture finalization Time with Patient: Less than 30
[2022-04-04] MEDS: SODIUM CHLORIDE 0.9% 1,000 ML IV SCH ×2 (00:47→09:33)
[2022-04-04] MEDS ORDERED: guaiFENesin SYRUP 100MG/5ML 200 MG/10 ML CUP PO STA (02:36)
[2022-04-04] MEDS: AMPICILLIN-SULBACTAM 3 GM in SODIUM CHLORIDE 0.9% 100 ML IVPB SCH ×2 (02:42→09:32)
[2022-04-04 08:03] VITALS: BP 148/97; PULSE 74; RESP 20; TEMP 97.5
[2022-04-04 09:18] LABS: Non-African American GFR(CKD) 118.2 (60.0-200.0)
--- NOTE | 2022-04-04 09:25 | P.PN ---
Subjective Progress Note Date: 04/04/22 Principal diagnosis: Perineal abscess The patient is a 32-year-old male presented to the emergency department on 03/31/22 with complaints of an abscess to the right groin. Patient states he first noticed a painless lump on . On Thursday it became painful and then began draining. He admits to having fever, chills, and nausea. No vomiting or abdominal pain. Reported some scrotal swelling, but denies scrotal pain. Ultrasound of the scrotum shows skin thickening without evidence for organizing fluid collection and appropriate arterial and venous waveforms. CT is suggest wenceslao of cellulitis, no drainable fluid collection is seen. A wound culture was sent. ID is following. 04/02 The patient states that he is not in much pain. He feels as if the fluid collection in the perineal area that extends down to the right buttock has grown significantly larger throughout the day. He reports a large amount of drainage coming out of the opening. Vitals are stable and he is on RA. Tmax today 99.0. UA unremarkable. Wound culture and blood culture in progress. Abdomen/pelvis CT consistent with cellulitis, reviewed by Dr. Francisco. Patient went to the OR for an I&D of perineal abscess. He had 2 lexi drains placed. The patient tolerated the procedure well and was sent to the PACU in stable condition. 04/03 The patient is in bed and eating breakfast. He denies any nausea or vomiting. He states his pain has been well controlled. He has been afebrile and VSS. WBC 14.4 today. Right groin wound culture from 03/31 with staphlococcus aureus. Blood cultures negative. Wound cultures obtained in OR yesterday pending. The patient's dressings were changed, perineal incision was repacked with iodoform. Lexi drains x 2 draining sero/sang drainage. Patient's was at the bedside and taught how to change dressings. manager market development called regarding possible wound care visiting nurse upon discharge. Objective - Vital Signs Vital signs: Vital Signs Temp 97.5 F L 04/04/22 07:00 Pulse 74 04/04/22 07:00 Resp 20 04/04/22 07:00 BP 148/97 04/04/22 07:00 Pulse Ox 97 04/04/22 07:00 FiO2 Intake & Output 04/03/22 04/04/22 04/04/22 18:59 06:59 18:59 Intake Total 720 Balance 720 Intake: Oral 720 Other: Voiding Method Toilet # Voids 1 3 - Exam General: Well developed, well nourished. No acute distress. HEENT: Head is atraumatic, normocephalic. Lungs: Respirations even and nonlabored. Abdomen/GI: Soft, obese, abdomen non-distended, non-tender : No suprapubic tenderness. Scrotum soft and reddened. Skin: Warm and dry. 2 lexi drains to perineum. Inner right thigh reddened a nd warm. Neurologic: Awake, alert and oriented times 3. CN II-XII grossly intact. No focal deficits. Psychiatric: Appropriate mood and affect. - Labs CBC & Chem 7: 04/03/22 04:48 04/04/22 05:56 Labs: Abnormal Lab Results - Last 24 Hours (Table) 04/03/22 04/03/22 Range/Units 04:48 04:48 WBC 14.41 H (4.50-10.00) X 10*3/uL RBC 4.01 L (4.40-5.60) X 10*6/uL MCV 104.5 H (80.0-97.0) fL MCH 34.7 H (27.0-32.0) pg Immature Gran # 0.12 H (0.00-0.04) X 10*3/uL Neutrophils # 11.65 H (1.80-7.70) X 10*3/uL Eosinophils # 0.01 L (0.04-0.35) X 10*3/uL Glucose 135 H (70-110) mg/dL Calcium 8.5 L (8.7-10.3) mg/dL Microbiology - Last 24 Hours (Table) 04/02/22 20:59 Gram Stain - Preliminary Other - Other Wound Culture - Preliminary 03/31/22 19:05 Blood Culture - Preliminary Blood No Growth after 72 hours 03/31/22 19:20 Blood Culture - Preliminary Blood No Growth after 72 hours 03/31/22 19:10 Gram Stain - Final Groin Wound Culture - Final Staphylococcus aureus Assessment and Plan Assessment: The patient states he did not sleep well. The hospital bed is uncomfortable for his back. He reports his pain it tolerable. He is afebrile and VSS. The patient's dressings were changed, perineal incision was repacked with iodoform. Purulent drainage noted. Lexi drains x 2 draining with sero/sang drainage. Deep wound cultures pending. Per ID, discharge antibiotic on the base of his clinical response as well as deep culture finalization. (1) Abscess or cellulitis of groin Status: Acute Code(s): GTK2810 - SNOMED Code(s): 368686751 Plan: - Sitz bath BID - Dressing change/re-packed BID - Continue antibiotics, appreciate ID recommendations - Continue current pain regimen - Patient may be discharged from a urological stand point - Discharge home with visiting wound care nurse - Follow up in the office with Dr. Francisco Thursday04/07/22 Impression and plan of care have been directed as dictated by the signing physician. Negar Villasenor nurse practitioner acting as scribe for signing physician. Negar Villasenor [facility] Palliative Care/Urology [facility] [id number] Email: [email or web address] I have personally seen and examined the patient, reviewed the documentation and agree with the assessment and plan as written. Number of minutes spent on the visit: 20. Tr Francisco MD
[2022-04-04] MEDS: ENOXAPARIN 40 MG/0.4 ML SYRINGE SQ SCH (09:32)
[2022-04-04] MEDS: amLODIPine 10 MG TAB PO SCH (09:32)
--- NOTE | 2022-04-04 13:24 | P.DS ---
Providers Date of admission: 04/02/22 11:17 Expected date of discharge: 04/04/22 Attending physician: Yakelin Castañeda MD Consults: 04/01/22 03:08 Consult Physician Urgent Consulting Provider: Wilner Bliss Consult Reason/Comments: R groin abscess Do you want consulting provider notified?: Yes 04/01/22 10:29 Consult Physician Routine Consulting Provider: Tr Francisco Consult Reason/Comments: perineal abscess Do you want consulting provider notified?: Yes Primary care physician: Stated None Hospital Course: Methicillin Sensitive Staph aureus Right perineal abscess with sepsis POA Hypertension Morbid obesity with BMI 50.1 The patient is a 32-year-old male with poorly controlled hypertension who presented to the emergency room with concerns of a right groin abscess. In the ER he underwent extensive evaluation. On arrival his vital signs were remarkable for a pulse of 120 and a blood pressure 179/104. Laboratory evaluation was remarkable for leukocytosis of 16.7. CT abdomen and pelvis revealed inflammatory changes in the subcutaneous fat in the right side of the perineum consistent with cellulitis with no drainable fluid collection. There was also fatty infiltration of the liver. Scrotal ultrasound revealed no acute abnormalities. In the ER arrangements were made for admission secondary to right perennial abscess with sepsis. Patient was placed on Zosyn and infectious disease was consulted. Patient was also seen by urology and ultimately taken to the OR for an I&D on 04/02 with drain placement. Patient's superficial wound cu lture ultimately grew MSSA. His deep wound cultures did not grow any microbiology. Patient reported significant improvement in his pain as well as his drainage. Ultimately, in consultation with infectious disease, he was discharged on 14 additional days of cephalexin. Patient was also sent home with wound care supplies and home healthcare services for wound management. Patient will follow-up with infectious disease, urology, primary care physician. I spent 38 minutes coordinating this discharge, discharge date 04/04. Gen: awake, alert HEENT: normocephalic, atraumatic, good hearing acuity, moist mucous membranes Resp: good air exchange, breathing comfortably with no accessory muscle use CVS: good distal perfusion x 4, GI: soft, NTTP, ND : no SPT, no CVAT, chicas catheter not present MSK: no pitting edema, no clubbing Neuro: non-focal, moving all extremities Psych: cooperative, euthymic mood Patient Condition at Discharge: Good Plan - Discharge Summary Discharge Rx Participant: Yes New Discharge Prescriptions: New amLODIPine [Norvasc] 10 mg PO DAILY #30 tab Cephalexin [Keflex] 500 mg PO Q6HR 14 Days #56 cap Continue Folic Acid 1 mg PO DIRECTED Ergocalciferol [Vitamin D2 (1250 Mcg = 84062 Iu)] 1,250 mcg PO DIRECTED Amitriptyline HCl [Elavil] 25 mg PO DIRECTED Famotidine [Pepcid] 20 mg PO DIRECTED Discontinued Metoprolol Tartrate [Lopressor] 50 mg PO DIRECTED hydroCHLOROthiazide 25 mg PO DIRECTED Losartan Potassium [Cozaar] 25 mg PO DIRECTED Discharge Medication List Ergocalciferol [Vitamin D2 (1250 Mcg = 91978 Iu)] 1,250 mcg PO DIRECTED 09/16/21 [History] Folic Acid 1 mg PO DIRECTED 09/16/21 [History] Amitriptyline HCl [Elavil] 25 mg PO DIRECTED 04/01/22 [History] Famotidine [Pepcid] 20 mg PO DIRECTED 04/01/22 [History] Cephalexin [Keflex] 500 mg PO Q6HR 14 Days #56 cap 04/04/22 [Rx] amLODIPine [Norvasc] 10 mg PO DAILY #30 tab 04/04/22 [Rx] Follow up Appointment(s)/Referral(s): Tr Francisco MD [STAFF PHYSICIAN] - 04/07/22 [facility], [NON-STAFF] - 1 Week None,Stated [Primary Care Provider] - 1-2 days Patient Instructions/Handouts: Cellulitis (ED), [place] Drain (DC) Activity/Diet/Wound Care/Special Instructions: Sitz bath twice daily. After bath please pack middle perineal incision loosely with 1/2 inch iodoform. Cover rebecca drains with 4x4. Hold in place with mesh panties. Follow up with Dr. Francisco on Thursday for possible drain removal. Discharge Disposition: HOME WITH HOME HEALTH SERVICES
--- NOTE | 2022-04-04 14:30 | P.PN ---
Subjective Progress Note Date: 04/04/22 Principal diagnosis: Right perineum abscess and cellulitis Patient is a 32-year male presented to hospital with right perineal pain swelling redness and drainage in this patient has been diagnosed with a right perineal abscess.Patient is status post surgical drainage of the right perianal abscess by urology on 04/02/2022. [place] [address]/2021, the patient remains to be afebrile, the patient pain to the right perineal area has decreased in intensity and the patient is feeling better, the patient denies having any chest pain or shortness with or cough no nausea no vomiting no abdominal pain no diarrhea Objective - Vital Signs Vital signs: Vital Signs Temp 97.5 F L 04/04/22 07:00 Pulse 74 04/04/22 07:00 Resp 20 04/04/22 07:00 BP 148/97 04/04/22 07:00 Pulse Ox 97 04/04/22 07:00 FiO2 Intake & Output 04/03/22 04/04/22 04/04/22 18:59 06:59 18:59 Intake Total 720 Balance 720 Intake: Oral 720 Other: Voiding Method Toilet # Voids 1 3 - Exam GENERAL DESCRIPTION: Middle-aged male lying in bed, no distress. No tachypnea or accessory muscle of respiration use. LUNGS: Unlabored breathing. Clear to auscultation anteriorly. No wheeze or crackle. HEART: S1, S2, regular rate and rhythm. No loud murmur ABDOMEN: Soft, no tenderness : Right perineal area swelling redness has decreased the patient did has Lexi drains 2 EXTREMITIES: No edema of feet. - Labs CBC & Chem 7: 04/03/22 04:48 04/04/22 05:56 Labs: Microbiology - Last 24 Hours (Table) 04/02/22 20:59 Gram Stain - Preliminary Other - Other Wound Culture - Preliminary 03/31/22 19:05 Blood Culture - Preliminary Blood No Growth after 72 hours 03/31/22 19:20 Blood Culture - Preliminary Blood No Growth after 72 hours 03/31/22 19:10 Gram Stain - Final Groin Wound Culture - Final Staphylococcus aureus Assessment and Plan (1) Abscess or cellulitis of groin Status: Acute Code(s): [id number] - SNOMED Code(s): 433387932 (2) Cellulitis of groin Status: Acute Code(s): L03.314 - CELLULITIS OF GROIN SNOMED Code(s): 96244859 Plan: 1patient with the right groin/perineal area swelling and redness and drainage concerning for cellulitis likely from gram-positive skin chyna underlying chronic infection and less likely but not entirely excluded 2Patient has been evaluated by urology And the patient is status post surgical drainage of the abscess on 04/02/2022. 3local culture has been finalized with MSSA with a deep OR cultures are currently pending however the patient is feeling better and wants to go home antibiotics switched over to oral Keflex 500 mg by mouth every 6 hours for 2 weeks and close outpatient follow-up which it has been advised if any worsening right groin pain drainage or develops any fever to come back right away Time with Patient: Less than 30
== END 2022-04-04 12:31 | disposition home health service (06) | DRG 854 ==
LOC: EC 16:20 → 6NMEDSUR 23:03 → OBSVTOIN 04-02 11:17
PROVIDERS: ADMIT Internal Medicine; ATTEND Internal Medicine
PROC: 0H99X0Z Drainage of Perineum Skin with Drainage Device, External Approach (ICD-10-PCS; principal; 2022-04-02 10:15)
DX: A41.01 Sepsis due to Methicillin susceptible Staphylococcus aureus (principal); L02.215 Cutaneous abscess of perineum; L03.315 Cellulitis of perineum; Z68.43 Body mass index [BMI] 50.0-59.9, adult; E66.01 Morbid (severe) obesity due to excess calories; F17.210 Nicotine dependence, cigarettes, uncomplicated; F90.9 Attention-deficit hyperactivity disorder, unspecified type; I10 Essential (primary) hypertension; K76.0 Fatty (change of) liver, not elsewhere classified; N50.89 Other specified disorders of the male genital organs; Z79.899 Other long term (current) drug therapy; Z82.49 Family history of ischemic heart disease and other diseases of the circulatory system; Z88.8 Allergy status to other drugs, medicaments and biological substances; Z28.310 Unvaccinated for COVID-19; Z28.21 Immunization not carried out because of patient refusal
CPT/HCPCS: 36415; 74177; 76870; 80048; 80053; 81001; 82565; 83605; 85025; 85027; 87040; 87070; 87075; 87077; 87186; 87205; 93975; 96361; 96365; 96366; 96367; 96375; 96376; 99285

== ENCOUNTER → 2022-07-10 | Outpatient (CLI) | payer BC ==
--- NOTE | 2022-07-10 15:52 | XR ---
EXAMINATION TYPE: XR spine complete AP and Lat DATE OF EXAM: 07/10/2022 COMPARISON: NONE HISTORY: Pain TECHNIQUE: AP and lateral views of the cervical, thoracic and lumbar spine submitted FINDINGS: Cervical spine: There is moderate degenerative disc disease C3-C4, C4-5 and C5 density. Retrolisthesi s of C4 on C5, C5 and C6 and C6 3 on C4 are noted with loss of normal cervical lordosis. Prevertebral soft tissue structures are maintained. Odontoid grossly intact. Thoracic spine: There is anatomic alignment with multilevel hypertrophic and degenerative changes mos t marked involving the mid and lower thoracic spine. Pedicles are grossly intact. Lumbar spine: Pedicles are intact. Vertebral body height is maintained at all levels and there is a m oderate degenerative disc disease with facet arthropathy L5-S1. IMPRESSION: 1. Moderate multilevel degenerative disc disease cervical spine. Retrolisthesis at multiple levels wi thin the cervical spine recommend follow-up MRI to assess for canal stenosis or foraminal encroachmen t. 2. Multilevel moderate degenerative disc disease mid and lower thoracic spine. 3. Moderate degenerative disc disease and facet arthropathy L5-S1.
== END | disposition home or self-care (01) ==
LOC: RADXRMAIN 14:18
PROVIDERS: ATTEND Nurse Practitioner Family
DX: M51.37 Other intervertebral disc degeneration, lumbosacral region (principal); M50.33 Other cervical disc degeneration, cervicothoracic region; M43.12 Spondylolisthesis, cervical region; M47.817 Spondylosis without myelopathy or radiculopathy, lumbosacral region
CPT/HCPCS: 72082

== ENCOUNTER → 2022-08-20 | Outpatient (CLI) | payer BC ==
--- NOTE | 2022-08-22 20:55 | MR ---
EXAMINATION TYPE: MR cspine/tspine wo con DATE OF EXAM: 08/20/2022 7:14 PM CLINICAL INDICATION:Male, 32 years old with history of M54.2; M50.30; M54.12; Left leg pain, Severe l ow back pain, Lt shoulder/chest pain COMPARISON: CT 03/31/2022, 09/16/2021 TECHNIQUE: Multi planar, multi sequence imaging was performed utilizing: T1-weighted, T2-weighted, a nd turbo inversion recovery imaging of the cervical and thoracic spine. MR contrast: IV Contrast: None. FINDINGS: CERVICAL: Alignment: The cervical vertebral bodies have preserved heights. Alignment is within normal limits gi harjinder patient positioning. Bones: Bone signal is within normal limits. Cord: The spinal cord is unremarkable with regards to their signal intensity and morphology. There is a high T2 signal syrinx at the level of C6-C7 measuring approximately 18 mm in length. In measuring 2 mm in thickness. Discs: Multilevel disc desiccation is present. C2-C3: No significant disc pathology. The spinal canal is patent. No neural foraminal stenosis. C3-C4: No significant disc pathology. The spinal canal is patent. Bilateral facet and uncovertebral joint arthropathy are present with mild to moderate right neural foraminal stenosis. The left neural foramen is patent. C4-C5: No significant disc pathology. The spinal canal is patent. Bilateral facet and uncovertebral joint arthropathy are present with mild to moderate left neural foraminal stenosis. The right neural foramen is patent. C5-C6: No significant disc pathology. The spinal canal is patent. Bilateral facet and uncovertebral joint arthropathy are present with mild to moderate left neural foraminal stenosis. The right neural foramen is patent. C6-C7: No significant disc pathology. The spinal canal is patent. No neural foraminal stenosis. C7-T1: No significant disc pathology. The spinal canal is patent. No neural foraminal stenosis. THORACIC: There are scattered osteophytes and suspected disc herniations throughout the thoracic spine. Some of the osteophytes are better appreciated on CT T1-T2 left central osteophyte without significant spinal canal stenosis. This does narrow the subarac hnoid space. The neural foramen are patent. T2-T3 left foraminal osteophyte which effaces the left exiting nerve and the anterior spinal cord. T3-T4 osteophytes involving the central and left central spinal canal which effaces the spinal cord a nd mildly narrows left neural foramen. T4-T5 osteophytes involving the central and left central spinal canal which effaces the spinal cord a nd mildly narrows left neural foramen. T6-T7. Right central osteophyte which impresses upon the spinal cord. The spinal canal and neural for amen are otherwise patent. T7-T8 anterior osteophyte which impresses upon the spinal cord. The neural foramen and spinal canal a re otherwise patent. The remainder of the thoracic levels spinal canal and neural foramen are patent. Other: None. IMPRESSION: 1. No definitive evidence of disc herniation or significant spinal canal stenosis. 2. Osteophyte complexes in the posterior aspect of the vertebral bodies extending through the predom inantly the upper thoracic spine resulting in effacement of the spinal cord at multiple levels as wel l as likely exiting nerve roots. Osteophyte compression upon the spinal cord is worse at T7-T8. 3. Bilateral cord Syrinx at the level C6-C7 measuring 18 x 2 mm.
== END | disposition home or self-care (01) ==
LOC: RADMRIMAIN 17:37
PROVIDERS: ATTEND Family Medicine
DX: M50.10 Cervical disc disorder with radiculopathy, unspecified cervical region (principal); M25.78 Osteophyte, vertebrae
CPT/HCPCS: 72141; 72146

== ENCOUNTER → 2023-08-21 | Outpatient (CLI) | payer BC ==
[2023-08-21 18:12] LABS: African American GFR (CKD) >90 (>60 ml/min/1.73 sqM); Blood Urea Nitrogen 11 mg/dL (9-20); Non-African American GFR(CKD) >90 (>60 ml/min/1.73 sqM)
--- NOTE | 2023-09-05 19:53 | CT ---
EXAMINATION TYPE: CT chest abdomen wo/w con CT DLP: combined 5329.2 mGycm, Automated exposure control for dose reduction was used. DATE OF EXAM: 08/21/2023 6:48 PM COMPARISON: None. CLINICAL INDICATION:Male, 33 years old with history of Z80.1 R63.4 R74.8 E88.09; PHH, abnormal lab wo rk, family history of malignant neoplasm of trachea/bronchi, abnormal weight loss, abnormal levels of other serum enzymes, TECHNIQUE: CT of the chest and abdomen were obtained both without and with oral and IV contrast. Mult iplanar reformats were obtained. Contrast used:100ml mL of Isovue 300 without and with IV Contrast, Oral contrast used: Without and with Oral Contrast FINDINGS: CHEST: LUNGS/ PLEURA: Mild scarring in the right middle lobe and lingula. The lung parenchyma appears otherw ise unremarkable. There is partial eventration along the hemidiaphragm bilaterally, a portion of the hepatic dome protrudes into the chest. AIRWAY: Central airways are patent. LOWER NECK: No significant findings. Normal thyroid. MEDIASTINUM: No enlarged lymph nodes by CT criteria.. HEART: Normal heart size. No visible coronary tree calcification.. No appreciable pericardial effusio n. VASCULATURE: Mild atherosclerotic calcification along the aortic arch. No evidence of aneurysm or di ssection.. Ascending aorta is 3.1 CM, descending is 2.5 CM. Pulmonary trunk measures 2.6 CM. Pulmonar y trunk is normal in size. Grossly preserved enhancement of the pulmonary arteries, in the limits of non-CTA exam. SOFT TISSUES/LYMPH NODES: Minimal gynecomastia like changes bilaterally. No axillary adenopathy. MUSCULOSKELETAL: No acute osseous abnormalities OTHER: No other significant finding. ABDOMEN: Scan does not include the pelvis, therefore excluding certain anatomy and portions of anatomy. LIVER: Diffusely hypoattenuating parenchyma suggesting moderate to severe steatosis. No evidence of m ass. GALLBLADDER AND BILE DUCTS: Mostly contracted gallbladder, grossly unremarkable. PANCREAS: Unremarkable. SPLEEN: Unremarkable spleen with adjacent splenule. ADRENAL GLANDS: Unremarkable.. KIDNEYS AND URETERS: No evidence of hydronephrosis, renal or ureteral calculus. Postcontrast kidneys enhance symmetrically without evidence of mass. STOMACH AND BOWEL: Stomach and small bowel do not appear abnormal. No evidence of obstruction. The ap pendix appears within normal limits. There are a few diverticula of the visualized colon without evid ence of diverticulitis. Mild to moderate colonic stool burden. Normal appendix is seen. PERITONEUM/RETROPERITONEUM: No evidence of pneumoperitoneum or free fluid. VASCULATURE: No evidence of aortic aneurysm. MUSCULOSKELETAL: No acute osseous abnormalities. Generally mild degenerative changes of the spine. Pr ominent disc osteophyte complex at L5-S1 may be associated with significant spinal canal and neural f oraminal stenoses. Changes in the upper sacrum likely from perineural cysts or benign nerve sheath tu mors. LYMPH NODES: No pathologically enlarged nodes by CT size criteria. A couple mildly prominent periport al lymph nodes, likely reactive. SOFT TISSUES/ABDOMINAL WALL: Unremarkable OTHER: No other significant finding. IMPRESSION: 1. No acute abnormality of the chest or abdomen. 2. No evidence of mass or metastatic disease. 3. Moderate to severe hepatic steatosis. 4. Colonic diverticular disease without evidence of diverticulitis.
== END | disposition home or self-care (01) ==
LOC: RADCTMAIN 16:48
PROVIDERS: ATTEND Family Medicine
DX: K57.30 Diverticulosis of large intestine without perforation or abscess without bleeding (principal); K76.0 Fatty (change of) liver, not elsewhere classified; R63.4 Abnormal weight loss; R74.8 Abnormal levels of other serum enzymes; E88.09 Other disorders of plasma-protein metabolism, not elsewhere classified; Z80.1 Family history of malignant neoplasm of trachea, bronchus and lung
CPT/HCPCS: 82565; 84520; 71270; 74170; 36415; Q9967

== ENCOUNTER → 2023-10-16 | Outpatient (CLI) | payer BC ==
--- NOTE | 2023-10-30 23:27 | P.PCN ---
Date of Procedure: 10/17/23 Operative Findings: Home sleep study testing Date of services 10/16/2023 Pertinent history 33-year-old male patient obese with a body mass index of 47 along with loud snoring and sleep fragmentation and chronic hypersomnia sleepiness. The patient is unable to sleep on his back because of increased shortness of breath and increased apneas and patient sleeps on his side. He is a mouth breather and has a Mallampati class IV. The patient also has bilateral diaphragmatic eventration Physical findings Weight is 36 with a body mass index of 47.5 Technical description [employer] Ap[employer] system was used to complete this home sleep study. This is a type III home sleep study. Total recording duration was 8 hours and 54 minutes. The study was started at 1:53 AM and ended at 10:48 AM. There was a total of 7 hours and 48 minutes of flow monitoring and 8 hours and 33 minutes of oxygen saturation monitoring. Results Respiratory analysis showed a total of 21 obstructive apneas and 52 obstructive hypopneas and the resulting AHI was 9.3 Oxygenation analysis The average pulse ox was 94% while awake. Average pulse ox during sleep was 89% with a minimum pulse ox of 77% and the patient below pulse ox of 89%. The patient spent 2 hours and 51 minutes of sleep time cardiac summary The average heart rate was 75 with a minimum heart rate of 54 and a maximum heart rate of 210 Assessment Mild MARIELLA with an AHI of 9.3 Severe nocturnal oxygen desaturation with a minimum pulse ox was 77% Loud snoring and sleep fragmentation chronic hypersomnia sleepiness Morbid obesity with a BMI of 47.5 Plan Proceed with CPAP titration.
== END ==
LOC: 3 N SLEEP 12:39
PROVIDERS: ATTEND Internal Medicine Critical Care Medicine
DX: G47.33 Obstructive sleep apnea (adult) (pediatric) (principal); G47.36 Sleep related hypoventilation in conditions classified elsewhere; E66.01 Morbid (severe) obesity due to excess calories; R06.02 Shortness of breath; Q79.1 Other congenital malformations of diaphragm; Z68.42 Body mass index [BMI] 45.0-49.9, adult; Z91.09 Other allergy status, other than to drugs and biological substances; Z88.8 Allergy status to other drugs, medicaments and biological substances

== ENCOUNTER → 2023-11-02 | Outpatient (CLI) | payer BC ==
--- NOTE | 2023-11-02 13:06 | FL ---
Fluoroscopy INDICATION: Diaphragm paralysis coughing at night FINDINGS: With quiet breathing there is symmetrical excursion of the bilateral diaphragms. With active sniffing there appears to be symmetrical excursion of the bilateral diaphragms. No paradoxical motion evident. Fluoroscopy time: 47 seconds. Total dose area product (DAP) in uGy*m?, mGy*cm? (or similar): 450.57 Images obtained: 139. IMPRESSION: 1. No suspicious changes to suggest diaphragm paralysis.
== END | disposition home or self-care (01) ==
LOC: RADUSWWP 09:53
PROVIDERS: ATTEND Internal Medicine Critical Care Medicine
DX: Q79.1 Other congenital malformations of diaphragm (principal)
CPT/HCPCS: 76000

== ENCOUNTER → 2023-11-07 | Outpatient (CLI) | payer BC ==
--- NOTE | 2023-11-07 12:11 | MR ---
EXAMINATION TYPE: MR cspine/lspine wo con DATE OF EXAM: 11/07/2023 11:25 AM CLINICAL INDICATION:Male, 33 years old with history of M54.2; PHH, Headaches, Neck pain into both arm s, Low back pain into left side x4 years COMPARISON: 08/20/2022 TECHNIQUE: Multi planar, multi sequence imaging was performed utilizing: T1-weighted, T2-weighted, a nd turbo inversion recovery imaging of the cervical and lumbar spine. MR contrast: IV Contrast: cc , None. FINDINGS: CERVICAL: Alignment: The cervical vertebral bodies have preserved heights. Alignment is within normal limits gi harjinder patient positioning. Bones: Bone signal is within normal limits. No abnormal bone marrow edema on inversion recovery seque nces. Cord: The spinal cord is unremarkable with regards to their signal intensity and morphology. Discs: Intervertebral disc signal is maintained. Limited evaluation of the neural foramen due to motion artifact. C2-C3: No significant disc pathology. The spinal canal is patent. No neural foraminal stenosis. C3-C4: No significant disc pathology. The spinal canal is patent. Bilateral facet and uncovertebral joint arthropathy are present with mild to moderate right neural foraminal stenosis. The left neural foramen is patent. C4-C5: No significant disc pathology. The spinal canal is patent. Bilateral facet and uncovertebral joint arthropathy are present with mild to moderate left neural foraminal stenosis. The right neural foramen is patent. C5-C6: No significant disc pathology. The spinal canal is patent. Bilateral facet and uncovertebral joint arthropathy are present with mild to moderate left neural foraminal stenosis. The right neural foramen is patent. C6-C7: No significant disc pathology. The spinal canal is patent. No neural foraminal stenosis. C7-T1: No significant disc pathology. The spinal canal is patent. No neural foraminal stenosis. Other: None. LUMBAR: Alignment: The lumbar vertebral bodies have preserved heights and alignment. Cord: The conus medullaris and the distal spinal cord appear unremarkable with regards to their signa l intensity and morphology. Bones/Discs: Mild degeneration changes throughout the spine with osteophyte formation and facet joint arthropathy. Intervertebral disc signal is maintained. T12-L1: No evidence of significant spinal canal stenosis or neural foraminal stenosis. L1-L2: No evidence of significant spinal canal stenosis or neural foraminal stenosis. L2-L3: No evidence of significant spinal canal stenosis or neural foraminal stenosis. L3-L4: No evidence of significant spinal canal stenosis or neural foraminal stenosis. L4-L5: No evidence of significant spinal canal stenosis or neural foraminal stenosis. L5-S1: The disc is rounded posterior morphology without significant spinal canal stenosis. Facet joellen nt arthropathy with mild neural foraminal stenosis. Dural ectasia of the spinal canal extending from S1 tor S4 measuring 9.5 x 2.6 cm. This is felt to di splace the thecal sac on imaging 1301 image 4 through 1. This displaces the exiting sacral nerves zohaib aterally. No significant spinal canal or neural foraminal stenosis in the remainder of the visualized levels. Other findings: None. IMPRESSION: 1. Limited evaluation of the neural foramina due to motion artifact. Overall neural foraminal stenos is in the cervical spine is similar to prior on 08/20/2022. 2. No definitive evidence of disc herniation or significant spinal canal stenosis. 3. Mild disc degeneration with associated osteoarthritic changes. 4. Cystic structure thought to be displacing the thecal sac extends from S1 to S4 measuring 9.5 x 2. 6 cm. Findings could represent large perineural cysts with dural ectasia not entirely excluded but fe lt to be less likely as it enters that this displaces the thecal sac. This displaces the bilateral sa cral nerves.
== END | disposition home or self-care (01) ==
LOC: RADMRIMAIN 09:56
PROVIDERS: ATTEND Orthopaedic Surgery Orthopaedic Surgery of the Spine
DX: M51.16 Intervertebral disc disorders with radiculopathy, lumbar region (principal); M48.061 Spinal stenosis, lumbar region without neurogenic claudication; M47.9 Spondylosis, unspecified; J98.4 Other disorders of lung; M50.321 Other cervical disc degeneration at C4-C5 level; M50.322 Other cervical disc degeneration at C5-C6 level; M62.830 Muscle spasm of back; R26.2 Difficulty in walking, not elsewhere classified; R53.1 Weakness
CPT/HCPCS: 72141; 72148

== ENCOUNTER 2023-11-20 07:27 | Day surgery (SDC) | payer BC ==
[2023-11-19 09:21] VITALS: BMI 45.6
[~2023-11-20 07:27] MED LIST: LIDOCAINE 1% (10MG/ML) FOR IV START INTRADERMA PRN
[2023-11-20 07:56] VITALS: TEMP 97.3
[2023-11-20] MEDS: IV FLUID CONTINUATION 1,000 ML IV ONE (07:56)
[2023-11-20] MEDS: INSULIN ASPART (NovoLOG) 100 UNIT/ML VIAL SQ ONE (07:58)
[2023-11-20] MEDS: LACTATED RINGERS 1,000 ML IV SCH (07:59)
[2023-11-20 08:01] LABS: Glucose,Whole Blood 248 mg/dL (70-110)
[2023-11-20] MEDS ORDERED: fentaNYL (PF) 50 MCG/ML 2 ML AMP ONE (08:13)
[2023-11-20] MEDS ORDERED: MIDAZOLAM 2 MG/2 ML VIAL ONE (08:13)
[2023-11-20] MEDS ORDERED: LIDOCAINE 1% INJ 10MG/ML (20 ML MDV) ONE (08:13)
[2023-11-20] MEDS ORDERED: KETAMINE HCL IN 0.9 % NACL 50 MG/5 ML SYRINGE ONE (08:13)
[2023-11-20] MEDS ORDERED: PROPOFOL 10 MG/ML 20 ML VIAL IV ONE (08:13)
--- NOTE | 2023-11-20 08:35 | P.PCN ---
Date of Procedure: 11/20/23 Procedure(s) Performed: Brief history: Patient is a pleasant 33-year-old white male scheduled for an elective upper endoscopy as well as colonoscopy as a part of evaluation of intermittent episodes of nausea vomiting for the last 4 months duration. He lost 70 pounds in the last 2 months. Scheduled for a screening colonoscopy as part of screening for colorectal neoplasia because of family history of colon cancer diagnosed in his mother in her mid 50s Procedure performed: Esophagogastroduodenoscopy with biopsy Colonoscopy Preoperative diagnosis: Chronic intermittent nausea vomiting Progressive weight loss Screening/family history of colon cancer Anesthesia: MAC Procedure: After informed consent was obtained from the patient was brought into the endoscopy unit and IV sedation was administered by anesthesia under continuous monitoring. Initially upper endoscopy was done. The Olympus GF 160 video endoscope was inserted inserted into the mouth and esophagus intubated without any difficulty and was gradually advanced into the stomach and duodenum and carefully examined. The bulb and second part of the duodenum appeared normal. Multiple biopsies were done from the duodenum to rule out celiac disease. The scope was then withdrawn into the stomach adequately insufflated with air and u negrito careful examination the antrum had mild gastritis and biopsies were done from this area. Mucosa of the body, cardia and fundus appeared normal. The scope was then withdrawn into the esophagus. The GE junction was located at 40 cm to the incisors. It appeared regular with linear erosions in the distal esophagus consistent with LA grade B reflux esophagitis.. Rest of the esophagus appeared normal. Patient tolerated the procedure well. At this time the patient continued to remain sedation. Initial digital rectal examination was normal. Olympus CF 160 video colonoscope was then inserted into the rectum and gradually advanced to the cecum without any difficulty. Careful examination was performed as the scope was gradually being withdrawn. The prep was excellent. The cecum, ascending colon, transverse colon, descending colon, sigmoid colon and rectum appeared normal. Scattered sigmoid diverticulosis. Retroflexion was performed in the rectum and no lesions were noted. Patient tolerated the procedure well. Impression: 1. Upper endoscopy revealed linear erosions of the distal esophagus consistent with LA grade B reflux esophagitis and mild antral gastritis 2. Colonoscopy was within normal limits except for scattered sigmoid diverticulosis Recommendations: Findings of this examination were discussed with the patient as well as his family. He was advised to follow-up with the biopsy results. Recommend omeprazole 40 mg daily and he was briefly educated about antireflux measures. Repeat colonoscopy in 5 years because of the family history of colon cancer .
[2023-11-20 08:57] LABS: Glucose,Whole Blood 249 mg/dL (70-110)
[2023-11-20 09:03] VITALS: BP 143/93; PULSE 67; RESP 20
== END 2023-11-20 09:15 | disposition home or self-care (01) ==
LOC: ORWHC2ENDO 07:27
PROVIDERS: ATTEND Internal Medicine Gastroenterology
DX: Z12.11 Encounter for screening for malignant neoplasm of colon (principal); K57.30 Diverticulosis of large intestine without perforation or abscess without bleeding; K22.10 Ulcer of esophagus without bleeding; K29.50 Unspecified chronic gastritis without bleeding; Z80.0 Family history of malignant neoplasm of digestive organs; I10 Essential (primary) hypertension; E11.9 Type 2 diabetes mellitus without complications; J44.9 Chronic obstructive pulmonary disease, unspecified; D86.0 Sarcoidosis of lung; F17.200 Nicotine dependence, unspecified, uncomplicated; K76.0 Fatty (change of) liver, not elsewhere classified; Z91.09 Other allergy status, other than to drugs and biological substances; Z88.8 Allergy status to other drugs, medicaments and biological substances; Z79.84 Long term (current) use of oral hypoglycemic drugs; Z79.899 Other long term (current) drug therapy
CPT/HCPCS: 88305; 45378; 43239; J2250; J2001; J3010; J2704

== ENCOUNTER 2023-12-22 16:54 | Emergency (ER) | payer BC ==
[2023-12-22 17:02] VITALS: RESP 20
--- NOTE | 2023-12-22 17:23 | ED ---
General Adult HPI - General Source: patient Mode of arrival: ambulatory Limitations: no limitations <Candace Alfaro - Last Filed: 12/22/23 17:22> <Juan Smith - Last Filed: 12/22/23 21:31> - General Chief complaint: Skin/Abscess/Foreign Body Stated complaint: infection in groin Time Seen by Provider: 12/22/23 17:22 - History of Present Illness Initial comments: 33-year-old male with history of at bedtime presenting with chief complaint of infection to the groin. This has been a recurrent issue for the patient. He did have drainage starting today. (Candace Alfaro) 33-year-old male with history of hidradenitis suppurativa who is a current smoker presents for evaluation of groin abscess. Patient states this was at the right side of his scrotum and inner thigh. He states that earlier today I did drain a significant amount of pus. Patient has required OR incision and drainage in the past. He denies fever. He states he follows with dermatology regarding his HS. (Juan Smith) - Related Data Previous Rx's Medication Instructions Recorded Clindamycin [Cleocin] 300 mg PO Q6H 10 Days #40 cap 12/22/23 Allergies Allergy/AdvReac Type Severity Reaction Status Date / Time montelukast [From Singulair] Allergy Cough Verified 12/22/23 17:02 nickel Allergy Unknown Verified 12/22/23 17:02 heparin AdvReac Nausea Verified 12/22/23 17:02 lisinopril AdvReac Cough Verified 12/22/23 17:02 Review of Systems ROS Other: All systems not noted in ROS Statement are negative. <Candace Alfaro - Last Filed: 12/22/23 17:22> ROS Other: All systems not noted in ROS Statement are negative. <Juan Smith - Last Filed: 12/22/23 21:31> ROS Statement: Those systems with pertinent positive or pertinent negative responses have been documented in the HPI. Past Medical History Past Medical History: GERD/Reflux, Hypertension, Liver Disease, Musculoskeletal Disorder, Skin Disorder, Sleep Apnea/CPAP/BIPAP Additional Past Medical History / Comment(s): SOB. "02 sat drops to 75% at night". No CPAP use. Stopped taking BP pill due to low BP and lightheadedness. Fatty liver. Herniated discs and pinched nerve in spine. Frequent, severe migraines. Hidradentis Suppurativa(HS). History of Any Multi-Drug Resistant Organisms: None Reported Past Surgical History: Orthopedic Surgery Additional Past Surgical History / Comment(s): Left foot surgery as a child, "groin surgery to remove infection". Past Anesthesia/Blood Transfusion Reactions: Motion Sickness Additional Past Anesthesia/Blood Transfusion Reaction / Comment(s): States after groin surgery in 2022 at [facility] Anesthesia told him he was "hard to control.", states not sure what was meant by that. Past Psychological History: ADD/ADHD Smoking Status: Current every day smoker Past Alcohol Use History: Occasional Past Drug Use History: Marijuana - Past Family History Mother Family Medical History: Cancer, Hypertension <Candace Alfaro - Last Filed: 12/22/23 17:22> General Exam Limitations: no limitations <Candace Alfaro - Last Filed: 12/22/23 17:22> General appearance: alert, in no apparent distress Head exam: Present: atraumatic, normocephalic Eye exam: Present: normal appearance, PERRL ENT exam: Present: normal exam Neck exam: Present: normal inspection Respiratory exam: Present: normal lung sounds bilaterally. Absent: respiratory distress, wheezes Cardiovascular Exam: Present: regular rate, normal rhythm exam: Present: other (Erythema to the right lateral aspect of the scrotum and inner thigh. There is 3 subcentimeter openings to what I suspect was a previous abscess. There is no current fluctuance.) Neurological exam: Present: alert, oriented X3, CN II-XII intact Psychiatric exam: Present: normal affect, normal mood Skin exam: Present: warm, dry <TiffanieagapitoJuan pruitt - Last Filed: 12/22/23 21:31> - General Exam Comments Initial Comments: Visual Physical Exam Vital signs reviewed General: Well-appearing, nontoxic, no acute distress. Head: Normocephalic, atraumatic Eyes: PERRLA, EOMI ENT: Airway patent Chest: Nonlabored breathing Skin: No visual rash, normal skin tone Neuro: Alert and oriented 3 Musculoskeletal: No gross abnormalities (Candace Alfaro) Course Vital Signs 12/22/23 12/22/23 16:58 19:53 Temperature 98.6 F 98.5 F Pulse Rate 100 91 Respiratory 20 20 Rate Blood Pressure 131/89 128/85 O2 Sat by Pulse 98 98 Oximetry Medical Decision Making <Candace Alfaro - Last Filed: 12/22/23 17:22> <Juan Smith - Last Filed: 12/22/23 21:31> - Medical Decision Making I performed the quick note portion of this visit, electronically signed Candace Alfaro PA-C (Candace Alfaro) Was pt. sent in by a medical professional or institution ([facility], [employer], urgent care, hospital, or alf...) When possible be specific @ -No Did you speak to anyone other than the patient for history (EMS, parent, family, police, friend...)? What history was obtained from this source @ -No Did you review nursing and triage notes (agree or disagree)? Why? @ -I reviewed and agree with nursing and triage notes Were old charts reviewed (outside hosp., previous admission, EMS record, old EKG, old radiological studies, urgent care reports/EKG's, alf records)? Report findings @ -No old charts were reviewed Differential Diagnosis abscess, cellulitis, necrotizing infection, hidradenitis suppurativa EKG interpreted by me (3pts min.). @ -As above X-rays interpreted by me (1pt min.). @ -None done CT interpreted by me (1pt min.). @ -None done U/S interpreted by me (1pt. min.). @ -None done What testing was considered but not performed or refused? (CT, X-rays, U/S, labs)? Why? @ -None What meds were considered but not given or refused? Why? @ -None Did you discuss the management of the patient with other professionals (professionals i.e. [facility]ero, [employer], lab, RT, psych nurse, social science professor, gauge and weigh machine adjuster, teacher, traffic maintenance officer, cyanide case hardener)? Give summary @ -No Was smoking cessation discussed for >3mins.? @ -No Was critical care preformed (if so, how long)? @ -No Were there social determinants of health that impacted care today? How? (Homelessness, low income, unemployed, alcoholism, drug addiction, transportation, low edu. Level, literacy, decrease access to med. care, halfway, rehab)? @ -No Was there de-escalation of care discussed even if they declined (Discuss DNR or withdrawal of care, Hospice)? DNR status @ -No What co-morbidities impacted this encounter? (DM, HTN, Smoking, COPD, CAD, Cancer, CVA, ARF, Chemo, Hep., AIDS, mental health diagnosis, sleep apnea, mo rbid obesity)? @ -Hidradenitis suppurativa, current smoker Was patient admitted / discharged? Hospital course, mention meds given and route, prescriptions, significant lab abnormalities, going to OR and other pertinent info. @ -I had requested laboratory tests be obtained and possible imaging. Patient states that he wants to follow-up with his surgeon as an outpatient and leaves AGAINST MEDICAL ADVICE. I did prescribe clindamycin for this patient. Undiagnosed new problem with uncertain prognosis? @ -No Drug Therapy requiring intensive monitoring for toxicity (Heparin, Nitro, Insulin, Cardizem)? @ -No Were any procedures done? @ -No Diagnosis/symptom? @Groin abscess, cellulitis Acute, or Chronic, or Acute on Chronic? @ -acute Uncomplicated (without systemic symptoms) or Complicated (systemic symptoms)? @ -Default Side effects of treatment? @ -No Exacerbation, Progression, or Severe Exacerbation? @ -No Poses a threat to life or bodily function? How? (Chest pain, [place], [place], pneumonia, PE, COPD, DKA, ARF, appy, cholecystitis, CVA, Diverticulitis, Homicidal, Suicidal, threat to staff... and all critical care pts) @ -yes, sepsis (Juan Smith) Disposition <Candace Alfaro - Last Filed: 12/22/23 17:22> Is patient prescribed a controlled substance at d/c from ED?: No Time of Disposition: 19:47 <Juan Smith - Last Filed: 12/22/23 21:31> Clinical Impression: Abscess or cellulitis of groin Disposition: LEFT AGAINST MEDICAL ADVICE Condition: Fair Instructions (If sedation given, give patient instructions): Abscess (ED) Prescriptions: Clindamycin [Cleocin] 300 mg PO Q6H 10 Days #40 cap Referrals: Elin Iqbal MD [Primary Care Provider] - 1-2 days Betrus,Tr, MD [STAFF PHYSICIAN] - 1-2 days
[2023-12-22 19:59] VITALS: BP 128/85; PULSE 91; TEMP 98.5
== END 2023-12-22 19:59 | disposition left against medical advice (07) ==
LOC: EC 16:54
DX: L02.91 Cutaneous abscess, unspecified
CPT/HCPCS: 99282